=== PATIENT | male | born 1940 | race Caucasian/White ===

== ENCOUNTER 2018-02-07 10:57 | Emergency (ER) | payer MEDICARE, OTHER ==
[2018-02-07 11:48] LABS: #Basophils 0.1 thou/uL (0.0-0.2); #Eosinphils 0.2 thou/uL (0.0-0.7); #Lymphocytes 1.5 thou/uL (1.20-3.40); #Monocytes 0.7 thou/uL (0.11-0.59); #Neutrophils 8.8 thou/uL (1.40-6.50); %Basophils 0.8 % (0.0-1.0); %Eosinophils 1.9 % (0.0-10.0); %Lymphocytes 13.1 % (21.0-51.0); %Monocytes 6.3 % (0.0-10.0); %Neutrophils 77.8 % (42.0-75.0); Mean Corpuscular HGB CONC 32.3 g/dL (32.0-36.0); Mean Corpuscular Volume 86.8 fl (80.0-94.0); Platelet Count 288 thou/uL (130-400); Red Blood Cell (RBC) Count 3.21 mill/uL (4.70-6.10); White Blood Cell (WBC) Count 11.3 thou/uL (4.8-10.8)
[2018-02-07 12:09] LABS: ALT (SGPT) 77 U/L (8-55); AST (SGOT) 182 U/L (5-34); Albumin 3.4 g/dL (3.4-4.8); Alkaline Phosphatase 397 U/L (40-150); Anion Gap 7 mmol/L (10-20); BUN (Urea Nitrogen) 30 mg/dL (8.4-25.7); Bilirubin, Total 0.2 mg/dL (0.2-1.2); Calc. Creatinine Clearance 0 mL/min (70-130); Calcium 8.6 mg/dL (7.8-10.44); Carbon Dioxide 28 mmol/L (23-31); Chloride 109 mmol/L (98-107); Estimated GFR-MDRD 35; Globulin 2.5 g/dL (2.4-3.5); Glucose 118 mg/dL (83-110); Potassium 4.6 mmol/L (3.5-5.1); Protein, Total 5.9 g/dL (5.8-8.1); Sodium 139 mmol/L (136-145)
[2018-02-07 12:11] LABS: CKMB 1.1 ng/mL (0-6.6); Troponin I Less than 0.010 ng/mL (< 0.028)
--- NOTE | 2018-02-07 12:40 | RAD ---
AP CHEST: Indication: Dyspnea with hypoglycemia. IMPRESSION: No acute abnormality. COMMENTS: No focal consolidation is evident. Vascular calcification involving the aortic arch. No comparisons a re available. There are degenerative changes of both glenohumeral joints. POS: [facility]
== END 2018-02-07 14:50 | disposition home or self-care (01) ==
LOC: ERS 10:57
DX: E11.649 Type 2 diabetes mellitus with hypoglycemia without coma (principal); I51.9 Heart disease, unspecified
CPT/HCPCS: 36415; 36416; 71045; 80053; 82553; 84484; 85025; 93005

== ENCOUNTER 2018-05-30 08:50 | Day surgery (SDC) | payer MEDICARE, OTHER ==
[2018-05-30] MEDS ORDERED: Sodium Chloride 0.9% 20 ML ONE (09:03)
[2018-05-30] MEDS ORDERED: diphenhydrAMINE 25 MG CAP PO SCH (09:15)
[2018-05-30] MEDS ORDERED: Acetaminophen 500 MG TAB PO SCH (09:15)
[2018-05-30] MEDS ORDERED: Sodium Chloride 0.9% 30 ML ONE (10:17)
[2018-05-30 13:04] LABS: Hemoglobin 8.3 g/dL (14.0-18.0)
[2018-05-30 15:46] VITALS: BP 132/73; TEMP 97.9
== END 2018-05-30 16:02 | disposition home or self-care (01) ==
LOC: ONC/OP 08:50
PROVIDERS: ATTEND Internal Medicine Medical Oncology
DX: D64.9 Anemia, unspecified (principal)
CPT/HCPCS: 36430; 85014; 85018; 86850; 86900; 86901; A4216; P9016

== ENCOUNTER 2018-06-16 10:06 | Outpatient (CLI) | payer MEDICARE, OTHER ==
--- NOTE | 2018-06-16 13:34 | CT ---
CT CHEST WITHOUT CONTRAST CT ABDOMEN WITHOUT CONTRAST CT PELVIS WITHOUT CONTRAST: Date: 06/16/18 HISTORY: Colon cancer FINDINGS: There is consolidation in the right lower lobe with small right effusion. Massive atelectasis left lo wer lobe. No definite suspicious pulmonary nodule. No significant pericardial effusion. Moderate to severe calcifications of the [place] coronary arterie s. Severe degenerative changes of both glenohumeral joints. Posterior spinal fusion hardware L4-5 with l aminectomy changes. Thyroid is unremarkable. No mediastinal adenopathy. Unchanged appearance of right cardiophrenic lymph node with small fatty hilum unlikely to be involve d. There is extensive hepatic metastatic disease with near complete replacement of the left lobe of t he liver with metastasis. This prior measured approximately 12 cm in left lobe, now approximately 15 cm. There is extension outside the hepatic capsule to the anterior pararenal space. The metastasis do es surround the second portion of the duodenum with some luminal narrowing. Tumor does also surround the pylorus. The patient is at risk for developing obstruction. The index lesion of the peritoneal implant which is herniated within the umbilical hernia measures 2. 2 x 1.3 cm, previously 1.2 x 0.8 cm. Worsening free fluid in the pelvis. An index perihepatic periton eal implant on today's examination measures 2.5 x 2.5 cm, previously 0.7 x 1.4 cm. Cholelithiasis is present. Perisplenic ascites is present. Aortoiliac contour is nonaneurysmal. Prostate is markedly enlarged. There is a large calculus within the urinary bladder which is slightly increased in size from the [facility] examination, likely from chronic stagnant flow due to chronic bladder outlet obstruction. No hydronephrosis. No osteolytic or osteoblastic lesions to suggest osseous metastatic disease. IMPRESSION: 1. Marked progression of intraperitoneal metastatic disease and hepatic metastatic disease. Tumor sharp rrounds the second portion of the duodenum and gastric antrum, placing this patient at risk for gastr ic outlet obstruction and bowel obstruction in the future. 2. Index lesions as described above, which have increased in size from comparison. POS: [facility]
== END 2018-06-16 10:07 | disposition home or self-care (01) ==
LOC: SCSCT 10:06
PROVIDERS: ATTEND Internal Medicine Medical Oncology
DX: C22.0 Liver cell carcinoma (principal); C78.6 Secondary malignant neoplasm of retroperitoneum and peritoneum; C78.4 Secondary malignant neoplasm of small intestine; C78.89 Secondary malignant neoplasm of other digestive organs; N18.3 Chronic kidney disease, stage 3 (moderate); D63.1 Anemia in chronic kidney disease; R91.8 Other nonspecific abnormal finding of lung field; K42.9 Umbilical hernia without obstruction or gangrene
CPT/HCPCS: 71250; 74177

== ENCOUNTER 2018-06-28 09:51 | Day surgery (SDC) | payer MEDICARE, OTHER ==
[2018-06-28] MEDS ORDERED: diphenhydrAMINE 25 MG CAP PO SCH (10:15)
[2018-06-28] MEDS ORDERED: Acetaminophen 500 MG TAB PO SCH (10:15)
[2018-06-28 10:56] VITALS: BMI 30.7
[2018-06-28 14:47] LABS: Hemoglobin 8.7 g/dL (14.0-18.0)
[2018-06-28 18:26] VITALS: BP 170/96; TEMP 97.6
== END 2018-06-28 18:51 | disposition home or self-care (01) ==
LOC: ONC/OP 09:51 → ONC 10:03 → ONC/OP 18:51
PROVIDERS: ATTEND Internal Medicine Medical Oncology
PROC: 30233N1 Transfusion of Nonautologous Red Blood Cells into Peripheral Vein, Percutaneous Approach (ICD-10-PCS; principal; 2018-06-28)
DX: D64.9 Anemia, unspecified (principal); D69.6 Thrombocytopenia, unspecified; Z79.02 Long term (current) use of antithrombotics/antiplatelets; Z79.4 Long term (current) use of insulin; Z79.82 Long term (current) use of aspirin; Z79.899 Other long term (current) drug therapy; Z91.013 Allergy to seafood; Z91.018 Allergy to other foods; Z91.041 Radiographic dye allergy status
CPT/HCPCS: 36415; 36430; 85014; 85018; 86850; 86900; 86901; P9016

== ENCOUNTER 2018-07-29 21:51 | Inpatient (IN) | payer MEDICARE, OTHER ==
[~2018-07-29 21:51] MED LIST: ISOVUE-370 76%-LOCM 1 ML ONE
[2018-07-29 22:49] LABS: #Basophils 0.1 thou/uL (0.0-0.2); #Eosinphils 0.4 thou/uL (0.0-0.7); #Lymphocytes 1.9 thou/uL (1.20-3.40); #Monocytes 0.9 thou/uL (0.11-0.59); #Neutrophils 9.6 thou/uL (1.40-6.50); %Basophils 0.5 % (0.0-1.0); %Eosinophils 2.9 % (0.0-10.0); %Lymphocytes 14.6 % (21.0-51.0); %Monocytes 7.4 % (0.0-10.0); %Neutrophils 74.6 % (42.0-75.0); Hemoglobin 9.9 g/dL (14.0-18.0); Mean Corpuscular HGB CONC 31.2 g/dL (32.0-36.0); Mean Corpuscular Hemoglobin 27.6 pg (27.0-31.0); Mean Corpuscular Volume 88.3 fL (78.0-98.0); Mean Platelet Volume 10.4 fL (7.4-10.4); Platelet Count 322 thou/uL (130-400); RBC Distribution Width 21.2 % (11.5-14.5); Red Blood Cell (RBC) Count 3.59 mill/uL (4.70-6.10); White Blood Cell (WBC) Count 12.8 thou/uL (4.8-10.8)
[2018-07-29 22:55] LABS: INR-International Normal Ratio 1.1; PTT 31.2 SEC (22.9-36.1); Prothrombin Time 14.1 SEC (12.0-14.7)
--- NOTE | 2018-07-29 22:59 | CT ---
CT BRAIN NONCONTRAST: 07/29/18 at 10:47 p.m. HISTORY: 77-year-old male status post acute head trauma from fall. FINDINGS: There is no midline shift or any other mass effect. There is no evidence of acute intracranial hemor rhage, large cortical infarct, obstructive hydrocephalus, or extraaxial fluid collection. The calvar ium is intact. There is a right parietal scalp contusion. IMPRESSION: 1. No acute intracranial findings. 2. Acute, traumatic, right posterior scalp contusion. jn [] POS: [facility]
--- NOTE | 2018-07-29 23:08 | CT ---
CT CERVICAL SPINE NONCONTRAST: 07/29/18 HISTORY: 77-year-old male status post acute cervical trauma from fall. FINDINGS: There are no jumped or perched facets. There is no evidence of acute fracture. The vertebral body h eights are maintained. There is no prevertebral soft tissue swelling. There is a posteriorly layerin g right pleural effusion that encroaches upon the right apex. IMPRESSION: 1. No evidence of acute fracture or acute traumatic subluxation. 2. Right pleural effusion. jessica griffiths POS: [facility]
[2018-07-29 23:09] LABS: ALT (SGPT) 78 U/L (8-55); AST (SGOT) 216 U/L (5-34); Albumin 3.6 g/dL (3.4-4.8); Alkaline Phosphatase 456 U/L (40-150); Anion Gap 14 mmol/L (10-20); BUN (Urea Nitrogen) 38 mg/dL (8.4-25.7); Bilirubin, Total 0.3 mg/dL (0.2-1.2); CK (CPK) 62 U/L (30-200); Calc. Creatinine Clearance 0 mL/min (70-130); Calcium 9.3 mg/dL (7.8-10.44); Carbon Dioxide 23 mmol/L (23-31); Chloride 108 mmol/L (98-107); Estimated GFR-MDRD 23; Globulin 3.7 g/dL (2.4-3.5); Glucose 146 mg/dL (83-110); Magnesium 1.6 mg/dL (1.6-2.6); Protein, Total 7.3 g/dL (5.8-8.1); Sodium 140 mmol/L (136-145)
[2018-07-29] MEDS ORDERED: Ondansetron HCl/PF 4 MG/2 ML Vial ONE (23:11)
[2018-07-29] MEDS ORDERED: Fentanyl 100 MCG/2 ML VIAL ONE (23:11)
[2018-07-29 23:12] LABS: CKMB 1.3 ng/mL (0-6.6); Troponin I Less than 0.010 ng/mL (< 0.028)
--- NOTE | 2018-07-29 23:19 | CT ---
CT MAXILLOFACIAL NONCONTRAST: 07/29/18 at 10:49 p.m. HISTORY: 77-year-old male status post acute facial trauma from fall. FINDINGS: There is no fracture. Orbits are clear. All of the paranasal sinuses, and the bilateral tympanomastoi d cavities, are clear. There is ossification of the right stylohyoid ligament, reaching very close to the hyoid bone. At a distance of approximately 2.5 to 3 cm inferior to the origin of the right stylo id process, there are hypertrophic osseous degenerative changes at the junction between it and the os sified right stylohyoid ligament. IMPRESSION: 1. No acute fracture. 2. Ossification of the right stylohyoid ligament. In some patients this could cause [place]'s synd odalis. Clinical correlation is recommended. POS: [facility]
--- NOTE | 2018-07-29 23:37 | CT ---
CT THORAX NONCONTRAST CT ABDOMEN NONCONTRAST CT PELVIS NONCONTRAST CT THORACIC AND LUMBAR SPINE NONCONTRAST 07/29/18 at 11:04 p.m. HISTORY: 77-year-old male status post acute traumatic injury to the chest, abdomen and pelvis from fall. COMPARISON: CTs of thorax, abdomen, and pelvis of 06/16/18. FINDINGS: THORACIC AND LUMBAR SPINE: No evidence of acute compression fracture. Multilevel high grade degenerative disc disease throughout the lumbar spine. Bilateral pedicle screws at L4 and L5. THORAX: Previously, there was a very small right pleural effusion. This has increased in volume, and is still small, but currently occupies approximately 20% volume of the right hemithoracic cavity. Small area of air space density abutting the pleural effusion, probably represents passive atelectasis. The rest of the visualized lung lance are clear of consolidation and edema. No grossly displaced rib or ster nal fracture. No mediastinal hematoma or pericardial effusion. No thoracic aortic aneurysm. No pneumo thorax. ABDOMEN: Again demonstrated is the large tumor mass replacing most of the volume of the left lobe of the liver , and encroaching upon right lobe of the liver. Multiple intraperitoneal metastatic masses throughout the mesentery and omentum. Multiple calcified gallstones again noted. No hydronephrosis. Small amoun t of free fluid around the liver and smaller amount of free fluid adjacent to the spleen. Free fluid adjacent to the spleen has decreased in volume since the previous CT. No small bowel dilation. PELVIS: Moderate amount of free fluid within the lower portion of the abdominal cavity extending into the pel tiana inlet has increased in volume since the previous CT somewhat. Very enlarged prostate gland. This displaces the base of the urinary bladder superiorly. Again noted is the 1 x 1 x 0.9 calculus within the lumen of the urinary bladder. No acute fracture of the pelvis. No dislocation. IMPRESSION: 1. Extensive intraperitoneal spread of metastatic disease. 2. Large neoplastic malignant hepatic mass. 3. Interval increase in volume of small right pleural effusion. 4. Cholelithiasis. 5. Calculus in the bladder. 6. Very enlarged prostate gland. 7. Small volume of malignant ascites has slightly increased in volume. 8. The presence of all of the above malignant findings, plus lack of IV contrast, decreases the sensitivity for the detection of acute traumatic injury within the abdominal cavity and pelvic cavity . No definitive evidence of acute traumatic injury is identified. POS: [facility]
--- NOTE | 2018-07-29 23:44 | RAD ---
RADIOGRAPH CHEST 1 VIEW: Supine 07/29/18 HISTORY: 77-year-old male status post acute chest trauma from fall. FINDINGS: There is no air space density or pulmonary edema. The lateral costophrenic angles are sharp. Supine positioning makes this study insensitive for pneumothorax detection. IMPRESSION: No acute pulmonary findings. jessica [] POS: [facility]
--- NOTE | 2018-07-29 23:47 | RAD ---
RADIOGRAPH LEFT SHOULDER 3 VIEWS: 07/29/18 at 11:22 p.m. HISTORY: 77-year-old male with traumatic left shoulder pain from fall. FINDINGS: Moderate degenerative bony hypertrophy at the inferior aspect of the glenohumeral joint. Moderate DJD at AC joint. Focal 6 x 5 mm calcific density in the soft tissues very close to the superior aspect o f the humeral anatomical neck. No acute fracture or dislocation. IMPRESSION: 1. No acute fracture. 2. Moderate osteoarthrosis of the glenohumeral joint and acromioclavicular joint. 3. 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 POS: [facility]
[2018-07-30] MEDS ORDERED: Promethazine HCl 25 MG/ML VIAL ONE (00:36)
--- NOTE | 2018-07-30 00:43 | PDOC.FPRHP ---
- History of Present Illness Chief Complaint: Fall History of Present Illness: Mr. Valdez presents to the ED with a 2 week history of increasing instability/ falls, he reports that it can happen at any time and usually involves tripping over something, or becoming unsteady. He usually falls all the way to the ground , but denies LOC. He denies chest pain, shortness of breath, palpitations, headaches, vision changes, N/V/D, or focal weakness. He has been treated for liver cancer for over a year and reports he has had a recent change in his medication regimen. He has a history of heart disease and sees Dr. Lamas regularly, had an echocardiogram 3-4 months ago. Everything is stable and without new concerns as far as they know. ED Course: CT: entire body, BNP, Trop/ckmb, CK, CMP/CBC, PT/PTT/INR. cleared from trauma standpoint - Allergies/Adverse Reactions Allergies Allergy/AdvReac Type Severity Reaction Status Date / Time iodine Allergy Verified 04/27/17 14:01 kiwi Allergy Swollen Verified 04/27/17 14:01 Lips shellfish derived Allergy Verified 04/27/17 14:01 SHRIMP Allergy Uncoded 04/27/17 14:01 - Home Medications Medication Instructions Recorded Confirmed Type Cholecalciferol (Vitamin D3) 2,000 unit PO DAILY 08/04/13 07/30/18 History [Vitamin D3] Insulin Glargine,Hum.Rec.Anlog 10 unit SC 08/04/13 07/30/18 History [Lantus Solostar] Verapamil HCl [Verapamil HCl ER] 360 mg PO DAILY 08/04/13 07/30/18 History Amitriptyline HCl 25 mg PO HS 04/26/17 07/30/18 History Finasteride 5 mg PO DAILY 04/26/17 07/30/18 History Fish Oil/Borage/Flax/Om3,6,9 1 1 cap PO BID 04/26/17 07/30/18 History [[place] 3-6-9 Complex Softgel] Carvedilol 6.25 mg PO BID 07/30/18 07/30/18 History Cyclobenzaprine [Flexeril] 10 mg PO TID PRN 07/30/18 07/30/18 History Levothyroxine Sodium 150 mg PO DAILY 07/30/18 07/30/18 History Loratadine [Claritin] 10 mg PO DAILY 07/30/18 07/30/18 History Mirtazapine 15 mg PO HS 07/30/18 07/30/18 History Ondansetron [Zofran ODT] 8 mg PO DAILY PRN 07/30/18 07/30/18 History traMADol HCl [Tramadol HCl] 50 mg PO DAILY 07/30/18 07/30/18 History - History PMHx: CHF, DMII, HTN, Liver CA PSHx: stent placement, knee replacement and back surgeries FHx:n/a Social:no TAD - Review of Systems General: reports: fatigue. denies: fever/chills, weight/appetite/sleep changes Eyes: denies: vision changes ENT: denies: nasal congestion, rhinorrhea Respiratory: denies: cough, congestion, shortness of breath Cardiovascular: reports: edema. denies: chest pain, palpitation Gastrointestinal: denies: nausea, vomiting, diarrhea Genitourinary: denies: incontinence, dysuria Skin: reports: jaundice. denies: rashes, lesions Musculoskeletal: reports: pain. denies: tenderness, stiffness Neurological: denies: numbness, syncope Psychological: denies: anxiety, depression - Vital signs BP: [160/87] HR: [62] RR: [16] Tmax: [98.2] Pox: [96]% on [RA] Wt: [80kg] - Physical Exam Constitutional: NAD, well developed HEENT: conjunctiva clear, grossly normal vision, grossly normal hearing Neck: supple, trachea midline Chest: no-tender to palpation, no lesions Heart: RRR Lungs: CTAB, no respiratory distress, good air movement, no wheezing Abdomen: soft, non-tender, no masses/distention Musculoskeletal: normal structure, ROM grossly normal Neurological: no focal deficit, CN II-XII intact, normal sensation Skin: no rash/lesions, good turgor Heme/Lymphatic: no unusual bruising or bleeding, no petechia Psychiatric: normal mood and affect FMR H&P: Results - Labs Result Diagrams: 07/29/18 22:37 07/29/18 22:37 Lab results: WBC 12.8 thou/uL (4.8-10.8) H 07/29/18 22:37 Hgb 9.9 g/dL (14.0-18.0) L 07/29/18 22:37 Hct 31.7 % (42.0-52.0) L 07/29/18 22:37 MCV 88.3 fL (78.0-98.0) 07/29/18 22:37 Plt Count 322 thou/uL (130-400) 07/29/18 22:37 Neutrophils % 74.6 % (42.0-75.0) 07/29/18 22:37 Sodium 140 mmol/L (136-145) 07/29/18 22:37 Potassium 5.0 mmol/L (3.5-5.1) 07/29/18 22:37 Chloride 108 mmol/L (98-107) H 07/29/18 22:37 Carbon Dioxide 23 mmol/L (23-31) 07/29/18 22:37 BUN 38 mg/dL (8.4-25.7) H 07/29/18 22:37 Creatinine 2.71 mg/dL (0.6-1.3) H 07/29/18 22:37 Glucose 146 mg/dL (83-110) H 07/29/18 22:37 Calcium 9.3 mg/dL (7.8-10.44) 07/29/18 22:37 Total Bilirubin 0.3 mg/dL (0.2-1.2) 07/29/18 22:37 AST 216 U/L (5-34) H 07/29/18 22:37 ALT 78 U/L (8-55) H 07/29/18 22:37 Alkaline Phosphatase 456 U/L (40-150) H 07/29/18 22:37 Creatine Kinase 62 U/L (30-200) 07/29/18 22:37 CK-MB (CK-2) 1.3 ng/mL (0-6.6) 07/29/18 22:37 B-Natriuretic Peptide 1093.5 pg/mL (0-100) H 07/29/18 22:37 Serum Total Protein 7.3 g/dL (5.8-8.1) 07/29/18 22:37 Albumin 3.6 g/dL (3.4-4.8) 07/29/18 22:37 Lipase 47 U/L (8-78) 07/29/18 22:37 FMR H&P: A/P - Problem List (1) Fall Current Visit: Yes Status: Acute Code(s): W19.XXXA - UNSPECIFIED FALL, INITIAL ENCOUNTER (2) Liver neoplasm Current Visit: Yes Status: Acute (3) CAD (coronary artery disease) Current Visit: No Status: Chronic Code(s): I25.10 - ATHSCL HEART DISEASE OF [place] CORONARY ARTERY W/O ANG PCTRS (4) Diabetes mellitus Current Visit: No Status: Chronic Code(s): E11.9 - TYPE 2 DIABETES MELLITUS WITHOUT COMPLICATIONS (5) HTN (hypertension) Current Visit: No Status: Chronic Code(s): I10 - ESSENTIAL (PRIMARY) HYPERTENSION (6) HLD (hyperlipidemia) Current Visit: No Status: Chronic Code(s): E78.5 - HYPERLIPIDEMIA, UNSPECIFIED - Plan 1. Fall - TTE in the last 3-4 months showing unchanged HFpEF (60% EF) - Negative CT brain - CMP at baseline - Negative Orthostatic vital signs 2. Liver neoplasm - being managed by oncology, on chemotherapy currently - ammonia level to evaluate for hepatic encephalopathy 3. CAD - cardiac catheterization in the past - trop/ckmb negative 4. DMII - controlled, continue home meds - mild sliding scale 5. HTN - blood pressure at goal - pulse possible too low, hold carvedilol Disposition/LOS: observation on telemetry, monitor vital signs, evaluate for other possible causes. FMR H&P: Upper Level - Pertinent history 77M seen today for fall. Patient gathered from patient who was sleepy and did not desire conversation. He states he was walking when he fell backward, hitting his head on counter and floor. He says that he's not sure if he was dizzy or tripped. He denies losing consciousness but did have vomiting, nausea afterward. He denies having diaphoresis, palpitation, chest pain, SOB, stomach pain at time this happened. His history pertinent for undergoing once every 2 week chemotherapy and DM2 and he had recent change in his chemo regimen. - Pertinent findings CTA abd, pelvis, cjest: metastatic disease, hepatic mass, right lungsion, ascites CT brain: Acute traumatic right posterior scalp contusion WBC 2. Hgb 9.9 Cr 2.7 BNP: 1093 AST 216 ALT 78 Creatinine phosphate 40 Gen: Sleeping, but arousable and answers appropriately HEENT: Contusion to eye and back of scalp. Resp: CTA bilaterall CV: RRR with no apparent m/g/r Ext: Trace edema to mid fay - Plan Date/Time: 07/30/18 0041 I, [Wallace Dunn], have evaluated this patient and agree with findings/plan as outlined by biology internship resident. Pertinent changes/additions are listed here. 1. Rule out SBP - ER obtained peritoneal fluid out of concern of SBP - Bloody tap, but even after removing WBC at a 1 to 250 RBC ratio, still has more then 250 WBC, can not rule out SBP - Plan, start on ceftriaxone 2 gm qd, until culture result returns. 2. Fall - Admit to tele, desk monitor to rule out arrhythmia - No hypotension while here, no symptom of hypoglycemia and was not hypoglycemic here. CT scan show no brain changes. - Will monitor, but may have been mechanical fall related. - Normal CMP today, recheck tomorrow 3. Liver cancer - Obtain ammonia level. Fall may be related to recent chemo change 4. CAD - Trop negative 5. DM2 - Continue home medication, mild SSI 6. HTN - Hold carvedilol at this time due to low pulse. 7. Hypothyrodism - Continue home medication. Attending Addendum - Attending Addendum Date/Time: 07/30/18 0659 I personally evaluated the patient and discussed the management with Dr. Singh. I agree with the History, Examination, Assessment and Plan documented above with any addition or exceptions noted below. The patietn presents to the ER after a fall resulting in a scalp lac and facial bruising. He has had multiple falls over the past few weeks. He was recently swapped to [facility] for his cancer treatment. He had a paracentesis in the ER which shows increased wbc's. Starting antibiotics for possible sbp. Pt not having any abdominal pain. Will consult PT. Await cultures.
[2018-07-30] MEDS ORDERED: Lidocaine 1% w/Epinephrine 1:100K 20 ML VIAL ONE (01:28)
[2018-07-30 03:12] LABS: BF Color Red; Body Fluid Source PERITONEAL FLUID; Clarity Cloudy/Turbid (Clear); Tube # EDTA
[2018-07-30 03:13] LABS: RBC Count-Automated 40000 /cumm; WBC/NonHematic-Auto 525 /cumm
[2018-07-30 03:37] LABS: BF Segmented Neutrophils 22 %; Cell Count Non Hematic 23 %; Lymphocytes 55 %
[2018-07-30] MEDS ORDERED: cefTRIAXone\\ROCEPHIN 1 GM VIAL ONE (03:40)
[2018-07-30 04:03] LABS: Bilirubin Negative (Negative); Blood, Urine Trace (Negative); Clarity CLEAR (Clear); Glucose, Urine (Dipstick) 100 mg/dL (Negative); Leukocyte Negative (Negative); Nitrite Negative (Negative); Protein, Urine (Dipstick) 300 mg/dL (Neg-Trace); Specific Gravity, Urine 1.015 (1.002-1.036); Urobilinogen 0.2 mg/dL (0.2-1.0); pH, Urine 6.5 (5.0-9.0)
[2018-07-30 04:05] LABS: Bacteria/HPF None Seen HPF (None Seen); Hyaline Casts/LPF 0-3 HYALINE CAST LPF (0-3 Hyaline); Pathc Cast-AUWi Flag 0.43 (0-2.49); Squamous Epithelial 0-3 HPF (0-3); WBC/HPF 0-3 HPF (0-3)
[2018-07-30 05:10] VITALS: BMI 29.7
[2018-07-30] MEDS ORDERED: Ondansetron ODT 4 MG TAB SL PRN (05:15)
[2018-07-30] MEDS ORDERED: Sodium Chloride 0.9% 1,000 ML IV SCH (05:15)
[2018-07-30] MEDS ORDERED: Ondansetron HCl/PF 4 MG/2 ML Vial IVP PRN (05:15)
[2018-07-30] MEDS: cefTRIAXone\\ROCEPHIN 2 GM in Sodium Chloride 0.9% 100 ML IVPB SCH (06:10)
[2018-07-30] MEDS ORDERED: Dextrose 50% Abboject 50 ML SYRINGE SLOW IVP PRN (06:25)
[2018-07-30] MEDS ORDERED: HumaLOG 300 UNITS/3 ML VIAL SC PRN ×2 (06:25)
[2018-07-30] MEDS ORDERED: Dextrose 5% in Water 1,000 ML IV PRN (06:25)
[2018-07-30] MEDS ORDERED: Cyclobenzaprine 10 MG TAB PO PRN (07:06)
[2018-07-30] MEDS ORDERED: FLAX PO SCH (09:00)
[2018-07-30] MEDS ORDERED: Non-Formulary Item 1 EACH (Cholecalciferol (Vitamin D3) [Vitamin D3] 2,000 UNIT) PO SCH (09:00)
[2018-07-30] MEDS ORDERED: [UNRECOGNIZED DRUG - OTHER] PO SCH (09:00)
[2018-07-30] MEDS ORDERED: VERAPAMIL HCL 360 MG PO SCH (09:00)
[2018-07-30] MEDS ORDERED: Levothyroxine 150 MCG TAB PO SCH (09:00)
[2018-07-30] MEDS ORDERED: FISH OIL PO SCH (09:00)
[2018-07-30] MEDS ORDERED: BORAGE PO SCH (09:00)
[2018-07-30] MEDS ORDERED: Non-Formulary Item 1 EACH (Loratadine [Claritin] 10 MG) PO SCH (09:00)
[2018-07-30] MEDS: Loratadine 10 MG TAB PO SCH (09:59)
[2018-07-30] MEDS: Finasteride 5 MG TAB PO SCH (09:59)
[2018-07-30] MEDS: Fish Oil 1,000 MG CAP PO SCH ×2 (09:59→22:07)
[2018-07-30] MEDS: Levothyroxine 150 MCG TAB PO SCH (09:59)
[2018-07-30] MEDS: Enoxaparin Sodium 30 MG/0.3 ML SYRINGE SC SCH (09:59)
[2018-07-30] MEDS: traMADol HCl 50 MG TAB PO SCH (10:00)
--- NOTE | 2018-07-30 10:01 | ULT ---
RIGHT UPPER QUADRANT ULTRASOUND: Date: 07/30/18 HISTORY: Abdominal pain. FINDINGS: Multiple longitudinal and transverse images of the right upper quadrant of the abdomen is obtained us ing a multihertz curvilinear transducer. Real-time and color flow images demonstrate a large solid ma ss in the left hepatic lobe measuring 6.7 x 5.7 cm. Further workup using pre and postcontrast enhance d dynamic CT images liver recommended. No evidence of intrahepatic biliary dilatation is seen. Numerous shadowing echogenic gallstones seen. The gallbladder is of normal thickness, measuring 5 mm. Pericholecystic fluid is seen. Visualized portions of the pancreas are unremarkable. The right kidney is unremarkable. IMPRESSION: 1. Large left hepatic lobe parenchymal liver mass. 2. Gallbladder wall thickening with pericholecystic fluid, compatible with cholecystitis. Cholelithi asis is also present. POS: [facility]
[2018-07-30] MEDS ORDERED: Acetaminophen 500 MG TAB PO PRN (13:23)
[2018-07-30] MEDS ORDERED: Non-Formulary Item 1 EACH (Insulin Glargine,Hum.Rec.Anlog [Lantus Solostar] 10 UNIT) SC SCH (21:00)
[2018-07-30] MEDS: Amitriptyline HCl 25 MG TAB PO SCH (22:10)
[2018-07-30] MEDS: Carvedilol 6.25 MG TAB PO SCH (22:10)
[2018-07-30] MEDS: Insulin Glargine 10 UNITS in Pre-Filled Syringe 1 EACH SC SCH (22:11)
[2018-07-30] MEDS: Mirtazapine 15 MG TAB PO SCH (22:11)
[2018-07-31] MEDS: cefTRIAXone\\ROCEPHIN 2 GM in Sodium Chloride 0.9% 100 ML IVPB SCH (04:28)
[2018-07-31 04:30] LABS: #Basophils 0.1 thou/uL (0.0-0.2); #Eosinphils 0.3 thou/uL (0.0-0.7); #Lymphocytes 1.7 thou/uL (1.20-3.40); #Monocytes 0.9 thou/uL (0.11-0.59); #Neutrophils 7.1 thou/uL (1.40-6.50); %Basophils 0.6 % (0.0-1.0); %Eosinophils 2.5 % (0.0-10.0); %Lymphocytes 17.1 % (21.0-51.0); %Monocytes 9.1 % (0.0-10.0); %Neutrophils 70.7 % (42.0-75.0); Hemoglobin 9.2 g/dL (14.0-18.0); Mean Corpuscular HGB CONC 30.3 g/dL (32.0-36.0); Mean Corpuscular Hemoglobin 27.2 pg (27.0-31.0); Mean Corpuscular Volume 89.7 fL (78.0-98.0); Mean Platelet Volume 10.1 fL (7.4-10.4); Platelet Count 287 thou/uL (130-400); RBC Distribution Width 20.9 % (11.5-14.5); Red Blood Cell (RBC) Count 3.39 mill/uL (4.70-6.10); White Blood Cell (WBC) Count 10.1 thou/uL (4.8-10.8)
[2018-07-31 04:41] LABS: ALT (SGPT) 84 U/L (8-55); AST (SGOT) 246 U/L (5-34); Albumin 3.3 g/dL (3.4-4.8); Alkaline Phosphatase 425 U/L (40-150); Anion Gap 12 mmol/L (10-20); BUN (Urea Nitrogen) 33 mg/dL (8.4-25.7); Bilirubin, Total 0.3 mg/dL (0.2-1.2); Calc. Creatinine Clearance 30 mL/min (70-130); Carbon Dioxide 24 mmol/L (23-31); Chloride 108 mmol/L (98-107); Estimated GFR-MDRD 28; Globulin 3.3 g/dL (2.4-3.5); Glucose 104 mg/dL (83-110); Potassium 4.8 mmol/L (3.5-5.1); Protein, Total 6.6 g/dL (5.8-8.1); Sodium 139 mmol/L (136-145)
--- NOTE | 2018-07-31 05:50 | PDOC.FM ---
- Subjective Subjective: No overnight events. Denies abdominal pain, chest pain, shortness of breath. Denies BM since admission, not interested in BM regimen at this time. No other concerns - Objective MAR Reviewed: Yes Vital Signs & Weight: Vital Signs (12 hours) Temp Pulse Resp BP BP BP BP 07/31/18 04:40 99.0 F 112 H 16 130/70 07/31/18 04:00 97.6 F 53 L 16 146/76 H 07/30/18 22:10 152/78 H 07/30/18 20:00 98.1 F 74 18 152/78 H Pulse Ox 07/31/18 04:40 07/31/18 04:00 07/30/18 22:10 07/30/18 20:00 97 Weight Weight 81.193 kg I&O: 07/29/18 07/30/18 07/31/18 06:59 06:59 06:59 Intake Total 1095 Balance 1095 Result Diagrams: 07/31/18 04:18 07/31/18 04:18 Phys Exam - Physical Examination Constitutional: NAD blood on pillow- wound on back of head Neck: supple Respiratory: no wheezing, clear to auscultation bilateral Systolic murmur Gastrointestinal: soft, non-tender, positive bowel sounds Musculoskeletal: pulses present, edema present Psychiatric: normal affect, A&O x 3 Dx/Plan (1) Fall Code(s): W19.XXXA - UNSPECIFIED FALL, INITIAL ENCOUNTER Status: Acute (2) Liver neoplasm Status: Acute (3) Bradycardia Code(s): R00.1 - BRADYCARDIA, UNSPECIFIED Status: Acute (4) Liver mass Code(s): R16.0 - HEPATOMEGALY, NOT ELSEWHERE CLASSIFIED Status: Acute (5) Anemia Code(s): D64.9 - ANEMIA, UNSPECIFIED Status: Chronic (6) BPH (benign prostatic hyperplasia) Code(s): N40.0 - BENIGN PROSTATIC HYPERPLASIA WITHOUT LOWER URINRY TRACT SYMP Status: Chronic (7) CAD (coronary artery disease) Code(s): I25.10 - ATHSCL HEART DISEASE OF [place] CORONARY ARTERY W/O ANG PCTRS Status: Chronic (8) Diabetes mellitus Code(s): E11.9 - TYPE 2 DIABETES MELLITUS WITHOUT COMPLICATIONS Status: Chronic (9) HLD (hyperlipidemia) Code(s): E78.5 - HYPERLIPIDEMIA, UNSPECIFIED Status: Chronic (10) HTN (hypertension) Code(s): I10 - ESSENTIAL (PRIMARY) HYPERTENSION Status: Chronic (11) Hypothyroid Code(s): E03.9 - HYPOTHYROIDISM, UNSPECIFIED Status: Chronic - Plan Plan: SBP - Asymptomatic - Fluid cloudy, RBCs 40,000 WBC 365 when corrected for rbcs, cx pending - Initially leukocytosis - Continue Ceftriaxone Fall - TTE in the last 3-4 months showing unchanged HFpEF (60% EF) - Negative CT brain - CMP at baseline, no hypoglycemia. Continue to monitor - Negative Orthostatic vital signs - Possible mechanical, PT/OT consulted Liver neoplasm - Being managed by oncology, on chemotherapy currently - Pt with recent change in therapy - Ammonia level nml CAD - Cardiac cath in the past - Will obtain records from Dr Lamas, Is Project Manager - Trop/ckmb negative - No acute ST changes on EKG DMII, controlled - Continue home Lantus - Mild SSI - ACHS accuchecks - Hypoglycemic protocol HTN - blood pressure at goal - Hold Carvedilol for bradycardia Hypothyroidism - Continue home synthroid Leukocytosis, resolved - possibly 2/2 SBP Code Status: FULL DVT ppx: lovenox
[2018-07-31] MEDS: Carvedilol 6.25 MG TAB PO SCH ×2 (09:21→20:28)
[2018-07-31] MEDS: Fish Oil 1,000 MG CAP PO SCH ×2 (09:22→20:28)
[2018-07-31] MEDS: Loratadine 10 MG TAB PO SCH (09:22)
[2018-07-31] MEDS: Enoxaparin Sodium 30 MG/0.3 ML SYRINGE SC SCH (09:22)
[2018-07-31] MEDS: Finasteride 5 MG TAB PO SCH (09:22)
[2018-07-31] MEDS: Levothyroxine 150 MCG TAB PO SCH (09:22)
[2018-07-31] MEDS: traMADol HCl 50 MG TAB PO SCH (09:25)
--- NOTE | 2018-07-31 12:11 | PRG ---
DATE OF SERVICE: 07/31/2018 SUBJECTIVE: Mr. Valdez was admitted after some falls. He also had a paracentesis due to his ascites secondary to multiple peritoneal metastases from his liver cancer. Actually, he states he feels much better since starting a new anti-chemotherapeutic agent. He is also being followed of course by the Oncology Service. We have a culture pending on the peritoneal fluid. I really doubt that he has SB P, but we will continue antibiotics until cultures return negative. Otherwise, we will follow the le ad of Oncology while consulting palliative care.
--- NOTE | 2018-07-31 15:06 | PQF ---
DATE: 07-31-18 ATTN: DR. RADHA VAZQUEZ / DR. CLAY ALICEA Please exercise your independent, professional judgment in responding to the clarification form. Clinical indicators are provided on the bottom of this form for your review Please check appropriate box(s): HEART FAILURE: A. TYPE: [ ] Systolic / HFrEF [x] Diastolic / HFpEF [ ] Combined Systolic / Diastolic B. ACUITY [ ] Acute [ ] Acute on Chronic [ ] Chronic [ ] Other diagnosis [ ] Unable to determine In addition, please specify: Present on Admission (POA): [ x] Yes [ ] No [ ] Unable to determine For continuity of documentation, please document condition throughout progress notes and discharge summary. Thank You. CLINICAL INDICATORS - SIGNS / SYMPTOMS / LABS ER DX: SYNCOPE, FALL, METASTATIC ASCITES, NEW ONSET CHF H&P: TTE IN THE LAST 3-4 MONTHS SHOWING UNCHANGED HFpEF (60% EF) BNP: 07-29-18: 1093.5 RISKS: ER: HX LIVER CA, CHRONIC BACK PAIN, DM 2, HEART DISEASE H&P: HX CHF, DM 2, HTN, CAD, HLD TREATMENTS: H&P: PULSE POSSIBLE TOO LOW, HOLD CARVEDILOL MAR: 07-30-18: CARVEDILOL This form is maintained as a part of the permanent medical record) 2014 [employer]. All Rights Reserved [email or web address] Office: [phone] [place]
[2018-07-31] MEDS: Mirtazapine 15 MG TAB PO SCH (20:28)
[2018-07-31] MEDS: Amitriptyline HCl 25 MG TAB PO SCH (20:28)
[2018-07-31] MEDS: Insulin Glargine 10 UNITS in Pre-Filled Syringe 1 EACH SC SCH (20:58)
[2018-08-01] MEDS: cefTRIAXone\\ROCEPHIN 2 GM in Sodium Chloride 0.9% 100 ML IVPB SCH (04:36)
--- NOTE | 2018-08-01 06:21 | PDOC.FM ---
- Subjective Subjective: No overnight events. Has some shoulder pain but not currently experiencing pain. Reports Ultram makes him too tired so he tries to avoid taking it he can. Denies SOB, CP. Voiding and stooling. No questions or concerns at this time. - Objective MAR Reviewed: Yes Vital Signs & Weight: Vital Signs (12 hours) Temp Pulse Resp BP BP Pulse Ox 08/01/18 04:12 97.3 F L 67 17 162/81 H 94 L 07/31/18 20:28 157/77 H 07/31/18 20:00 98.1 F 62 18 157/77 H 92 L Weight Admit Weight 81.193 kg Weight 81.193 kg I&O: 07/30/18 07/31/18 08/01/18 06:59 06:59 06:59 Intake Total 1095 960 Balance 1095 960 Result Diagrams: 07/31/18 04:18 07/31/18 04:18 Phys Exam - Physical Examination Constitutional: NAD Neck: supple Respiratory: no wheezing, clear to auscultation bilateral Cardiovascular: RRR Systolic murmur Gastrointestinal: soft, non-tender, positive bowel sounds Musculoskeletal: edema present Psychiatric: normal affect, A&O x 3 Skin: cap refill <2 seconds Dx/Plan (1) Fall Code(s): W19.XXXA - UNSPECIFIED FALL, INITIAL ENCOUNTER Status: Acute (2) Liver neoplasm Status: Acute (3) Bradycardia Code(s): R00.1 - BRADYCARDIA, UNSPECIFIED Status: Acute (4) Liver mass Code(s): R16.0 - HEPATOMEGALY, NOT ELSEWHERE CLASSIFIED Status: Acute (5) Anemia Code(s): D64.9 - ANEMIA, UNSPECIFIED Status: Chronic (6) BPH (benign prostatic hyperplasia) Code(s): N40.0 - BENIGN PROSTATIC HYPERPLASIA WITHOUT LOWER URINRY TRACT SYMP Status: Chronic (7) CAD (coronary artery disease) Code(s): I25.10 - ATHSCL HEART DISEASE OF [place] CORONARY ARTERY W/O ANG PCTRS Status: Chronic (8) Diabetes mellitus Code(s): E11.9 - TYPE 2 DIABETES MELLITUS WITHOUT COMPLICATIONS Status: Chronic (9) HLD (hyperlipidemia) Code(s): E78.5 - HYPERLIPIDEMIA, UNSPECIFIED Status: Chronic (10) HTN (hypertension) Code(s): I10 - ESSENTIAL (PRIMARY) HYPERTENSION Status: Chronic (11) Hypothyroid Code(s): E03.9 - HYPOTHYROIDISM, UNSPECIFIED Status: Chronic - Plan Plan: SBP - Asymptomatic - Fluid cloudy, RBCs 40,000 WBC 365 when corrected for rbcs - Cx NGTD @ 24hrs - Continue Ceftriaxone for total 5 days (started 07/30) Fall - TTE in the last 3-4 months showing unchanged HFpEF (60% EF) - Negative CT brain - CMP at baseline, no hypoglycemia. Continue to monitor - Negative Orthostatic vital signs - Possible mechanical, PT/OT consulted - OT rec pt return home with support from & receive HH PT services to increase independence with ADLs, functional transfers, strength and endurance back to [facility]. Liver neoplasm - Being managed by oncology, on chemotherapy currently - Pt would like flu shot, current chemo regimen recommends oncologist approval - Pt with recent change in therapy - Ammonia level nml - Mertazapine, Suplena for nutrition/wt loss - Palliative care consulted CAD - Cardiac cath 10/2015 diastolic dysfunction, aortic stenosis, moderate CAD, FFR in RCA. - PTCA done 12/2014 - Trop/ckmb negative - No acute ST changes on EKG DMII, controlled - Continue home Lantus - Mild SSI - ACHS accuchecks - Hypoglycemic protocol HTN - blood pressure at goal - Continue home Coreg, Verapamil Hypothyroidism - Continue home synthroid Leukocytosis, resolved - possibly 2/2 SBP Code Status: FULL DVT ppx: lovenox
[2018-08-01] MEDS: Enoxaparin Sodium 30 MG/0.3 ML SYRINGE SC SCH (10:11)
[2018-08-01] MEDS: Fish Oil 1,000 MG CAP PO SCH ×2 (10:12→21:07)
[2018-08-01] MEDS: Finasteride 5 MG TAB PO SCH (10:12)
[2018-08-01] MEDS: traMADol HCl 50 MG TAB PO SCH (10:13)
[2018-08-01] MEDS: Carvedilol 6.25 MG TAB PO SCH ×2 (10:13→21:07)
[2018-08-01] MEDS: Loratadine 10 MG TAB PO SCH (10:13)
[2018-08-01] MEDS: Levothyroxine 150 MCG TAB PO SCH (10:13)
--- NOTE | 2018-08-01 12:50 | PRG ---
DATE OF SERVICE: 08/01/2018 Mr. Valdez is sitting quietly in bed, in no distress. No new clinical changes and we will continue to follow up until peritoneal fluid is returned. If negative for bacteria he will likely be ready for discharge. In the meantime, we will continue antibiotics.
[2018-08-01] MEDS: Amitriptyline HCl 25 MG TAB PO SCH (21:07)
[2018-08-01] MEDS: Insulin Glargine 10 UNITS in Pre-Filled Syringe 1 EACH SC SCH (21:07)
[2018-08-01] MEDS: Mirtazapine 15 MG TAB PO SCH (21:07)
[2018-08-02] MEDS: cefTRIAXone\\ROCEPHIN 2 GM in Sodium Chloride 0.9% 100 ML IVPB SCH (04:22)
--- NOTE | 2018-08-02 06:15 | PDOC.FM ---
- Subjective Subjective: No overnight events. Is doing well and ready to go home. He felt dizzy and nauseous this morning after laying down. But is eating breakfast this morning and report nausea has mostly resolved. Denies pain. Voiding and stooling. - Objective MAR Reviewed: Yes Vital Signs & Weight: Vital Signs (12 hours) Temp Pulse Resp BP Pulse Ox 08/02/18 04:19 97.6 F 66 16 139/72 92 L 08/01/18 19:35 97.9 F 54 L 16 128/64 92 L Weight Admit Weight 81.193 kg Weight 81.828 kg I&O: 07/31/18 08/01/18 08/02/18 06:59 06:59 06:59 Intake Total 1095 960 850 Balance 1095 960 850 Result Diagrams: 07/31/18 04:18 07/31/18 04:18 Phys Exam - Physical Examination Constitutional: NAD Neck: supple Respiratory: no wheezing, clear to auscultation bilateral Cardiovascular: RRR systolic murmur Gastrointestinal: soft, non-tender, positive bowel sounds Musculoskeletal: pulses present Psychiatric: normal affect, A&O x 3 Skin: cap refill <2 seconds Dx/Plan (1) Fall Code(s): W19.XXXA - UNSPECIFIED FALL, INITIAL ENCOUNTER Status: Acute (2) Liver neoplasm Status: Acute (3) Bradycardia Code(s): R00.1 - BRADYCARDIA, UNSPECIFIED Status: Acute (4) Liver mass Code(s): R16.0 - HEPATOMEGALY, NOT ELSEWHERE CLASSIFIED Status: Acute (5) Anemia Code(s): D64.9 - ANEMIA, UNSPECIFIED Status: Chronic (6) BPH (benign prostatic hyperplasia) Code(s): N40.0 - BENIGN PROSTATIC HYPERPLASIA WITHOUT LOWER URINRY TRACT SYMP Status: Chronic (7) CAD (coronary artery disease) Code(s): I25.10 - ATHSCL HEART DISEASE OF [place] CORONARY ARTERY W/O ANG PCTRS Status: Chronic (8) Diabetes mellitus Code(s): E11.9 - TYPE 2 DIABETES MELLITUS WITHOUT COMPLICATIONS Status: Chronic (9) HLD (hyperlipidemia) Code(s): E78.5 - HYPERLIPIDEMIA, UNSPECIFIED Status: Chronic (10) HTN (hypertension) Code(s): I10 - ESSENTIAL (PRIMARY) HYPERTENSION Status: Chronic (11) Hypothyroid Code(s): E03.9 - HYPOTHYROIDISM, UNSPECIFIED Status: Chronic - Plan Plan: SBP - Asymptomatic - Fluid cloudy, RBCs 40,000 WBC 365 when corrected for rbcs - Cx NGTD @ 48hrs - Will d/c antibiotics and pt is okay to discharge, instructed to return for any fever or abdominal pain Fall - TTE in the last 3-4 months showing unchanged HFpEF (60% EF) - Negative CT brain - CMP at baseline, no hypoglycemia. Continue to monitor - Negative Orthostatic vital signs - Possible mechanical - OT rec pt return home with support from & receive HH PT services to increase independence with ADLs, functional transfers, strength and endurance back to [facility]. - CM consulted - Plan to f/u with Dr Teresa on Tuesday for staple removal Liver neoplasm - Being managed by oncology, on chemotherapy currently, Dr Lowe notified - Pt with recent change in therapy - Ammonia level nml - Mertazapine, Suplena for nutrition/wt loss - Palliative care consulted CAD - Cardiac cath 10/2015 diastolic dysfunction, aortic stenosis, moderate CAD, FFR in RCA. - PTCA done 12/2014 - Trop/ckmb negative - No acute ST changes on EKG DMII, controlled - Continue home Lantus - Mild SSI - ACHS accuchecks - Hypoglycemic protocol HTN - blood pressure at goal - Continue home Coreg, Verapamil Hypothyroidism - Continue home synthroid Leukocytosis, resolved - possibly 2/2 SBP Code Status: FULL DVT ppx: lovenox
[2018-08-02] MEDS: traMADol HCl 50 MG TAB PO SCH (08:20)
[2018-08-02] MEDS: Enoxaparin Sodium 30 MG/0.3 ML SYRINGE SC SCH (08:20)
[2018-08-02] MEDS: Levothyroxine 150 MCG TAB PO SCH (08:21)
[2018-08-02] MEDS: Loratadine 10 MG TAB PO SCH (08:22)
[2018-08-02] MEDS: Fish Oil 1,000 MG CAP PO SCH (08:22)
[2018-08-02] MEDS: Carvedilol 6.25 MG TAB PO SCH (08:22)
[2018-08-02] MEDS: Finasteride 5 MG TAB PO SCH (08:22)
[2018-08-02] MEDS: Ondansetron ODT 8 MG TAB PO PRN ×2 (08:29→09:23)
[2018-08-02 10:52] VITALS: BP 131/68
[2018-08-02 10:54] VITALS: TEMP 97.7
--- NOTE | 2018-08-02 13:10 | ADD-PRG ---
DATE OF SERVICE: 08/02/2018 This is an addendum to the note of Dr. Neha De León. Mr. Valdez's peritoneal fluid culture was negat gennaro. He continues to feel well and having no abdominal pain. His vital signs are stable and he is a febrile. He will be discharged to follow with his PCP on Tuesday.
--- NOTE | 2018-08-03 02:35 | DIS-2 ---
DATE OF ADMISSION: 07/30/2018 DATE OF DISCHARGE: 08/02/2018 RESIDENT: Neha De León, PGY-1. ADMITTING ATTENDING: Danita Hua M.D. DISCHARGE ATTENDING: Tono Martinez M.D. CONSULTATIONS: None. PRIMARY DIAGNOSES: 1. Spontaneous bacterial peritonitis. 2. Fall. SECONDARY DIAGNOSES: 1. Liver neoplasm. 2. Coronary artery disease. 3. Type 2 diabetes. 4. Hypertension. 5. Hypothyroidism. 6. Leukocytosis, resolved. DISCHARGE MEDICATIONS: 1. Amitriptyline 25 mg at bedtime. 2. Carvedilol 6.25 mg b.i.d. 3. Vitamin D3 of 2000 units daily. 4. Cyclobenzaprine 10 mg daily. 5. Finasteride 5 mg daily. 6. Fish oil 1 cap p.o. b.i.d. 7. Lantus 10 units at bedtime. 8. Levothyroxine 150 mcg daily. 9. Loratadine 10 mg daily. 10. Mirtazapine 15 mg at bedtime. 11. Zofran 8 mg p.o. daily. 12. Tramadol 50 mg daily. 13. Verapamil 360 mg daily. DISCONTINUED MEDICATIONS: None. HISTORY OF PRESENT ILLNESS AND HOSPITAL COURSE: Mr. Valdez is a very pleasant 77 -year-old male who presented with 2-week history of increasing instability and falls. He stood up from the table at dinner and fell. He was evaluated in the emergency room for this and had multiple CTs and x-rays done with ultimately no fractures. He did have multiple stephany placed in posterior or occiput to his head. He had negative orthostatic vitals, no hypoglycemia and electrolytes were all within normal limits. This was attributed to most likely a mechanical fall. He was evaluated by PT and OT. PT did not recommend any further intervention. O2 recommended the patient return home with support from and received home health PT services to increase his independence with his ADLs. He was found to have SBP, but paracentesis in the ED. He was asymptomatic, did not have abdominal pain at that time. Fluid was cloudy, had 40,000 red blood cells and 365 white blood cells after correction for rbcs. His peritoneal cultures were negative at 48 hours. He received 4 days of ceftriaxone. In regard to his liver neoplasm, Dr. Lowe was notified of admission. His medication regimen in regard to this is being managed by Oncology. His ammonia level was normal. Again, Palliative Care was consulted who did not recommend any further interventions. His chronic conditions of CAD, type 2 diabetes, hypertension, hypothyroidism well managed on his home medication and were stable throughout his hospitalization. DISCHARGE DISPOSITION: Stable. DISCHARGE INSTRUCTIONS: 1. Location: Home. 2. Diet: Heart healthy, diabetic. 3. Activity: No restrictions. 4. Follow up with PCP within 3-[address] Lowe. LORRI
== END 2018-08-02 12:28 | disposition home health service (06) | DRG 291 ==
LOC: ERS 21:51 → 2NO 07-30 00:30
PROVIDERS: ADMIT Family Medicine; ATTEND Family Medicine
PROC: 0HQ0XZZ Repair Scalp Skin, External Approach (ICD-10-PCS; principal; 2018-07-30)
PROC: 0W9G3ZX Drainage of Peritoneal Cavity, Percutaneous Approach, Diagnostic (ICD-10-PCS; 2018-07-30)
DX: I11.0 Hypertensive heart disease with heart failure (principal); K65.2 Spontaneous bacterial peritonitis; C22.9 Malignant neoplasm of liver, not specified as primary or secondary; R18.0 Malignant ascites; C78.6 Secondary malignant neoplasm of retroperitoneum and peritoneum; I50.32 Chronic diastolic (congestive) heart failure; W19.XXXA Unspecified fall, initial encounter; R00.1 Bradycardia, unspecified; D64.9 Anemia, unspecified; N40.0 Benign prostatic hyperplasia without lower urinary tract symptoms; I25.10 Atherosclerotic heart disease of native coronary artery without angina pectoris; E11.9 Type 2 diabetes mellitus without complications; E78.5 Hyperlipidemia, unspecified; E03.9 Hypothyroidism, unspecified; Z95.5 Presence of coronary angioplasty implant and graft; I35.0 Nonrheumatic aortic (valve) stenosis; D72.829 Elevated white blood cell count, unspecified; Z91.81 History of falling; M54.9 Dorsalgia, unspecified; G89.29 Other chronic pain; S01.81XA Laceration without foreign body of other part of head, initial encounter
CPT/HCPCS: 12002; 36415; 36416; 49082; 70450; 70486; 71045; 71260; 72125; 74177; 76705; 80053; 81003; 81015; 82042; 82140; 82553; 82945; 83605; 83690; 83735; 83880; 84484; 85025; 85060; 85610; 85730; 87070; 87205; 89051; 90471; 90662; 93005; 96365; 96367; 96375; A4216; G0008; G8978-GP-CK; G8979-GP-CK; G8980-GP-CK; G8987-GO-CJ; G8988-GO-CI; J0696; J1650; J2001; J2405; J2550; J3010; J7050

== ENCOUNTER 2018-08-18 12:27 | Day surgery (SDC) | payer MEDICARE, OTHER ==
[2018-08-18] MEDS ORDERED: Furosemide 20 MG TAB PO SCH (12:45)
[2018-08-18] MEDS ORDERED: diphenhydrAMINE 25 MG CAP PO SCH (12:45)
[2018-08-18] MEDS ORDERED: Acetaminophen 500 MG TAB PO SCH (12:45)
[2018-08-18 17:14] VITALS: BP 105/63; TEMP 97.7
== END 2018-08-18 17:21 | disposition home or self-care (01) ==
LOC: ONC/OP 12:27
PROVIDERS: ATTEND Internal Medicine Medical Oncology
DX: D64.9 Anemia, unspecified (principal); D69.6 Thrombocytopenia, unspecified; Z91.041 Radiographic dye allergy status; Z91.013 Allergy to seafood
CPT/HCPCS: 36430; 86850; 86900; 86901; 99211; G0463; P9016

== ENCOUNTER 2018-08-21 12:28 | Inpatient (IN) | payer MEDICARE, OTHER ==
[2018-08-21 13:36] LABS: INR-International Normal Ratio 1.1; Prothrombin Time 14.1 SEC (12.0-14.7)
[2018-08-21 13:37] LABS: #Basophils 0.1 thou/uL (0.0-0.2); #Eosinphils 0.2 thou/uL (0.0-0.7); #Lymphocytes 1.9 thou/uL (1.20-3.40); #Monocytes 0.8 thou/uL (0.11-0.59); #Neutrophils 5.1 thou/uL (1.40-6.50); %Basophils 1.3 % (0.0-1.0); %Eosinophils 2.7 % (0.0-10.0); %Lymphocytes 23.2 % (21.0-51.0); %Monocytes 9.6 % (0.0-10.0); %Neutrophils 63.2 % (42.0-75.0); Hemoglobin 10.1 g/dL (14.0-18.0); Mean Corpuscular Hemoglobin 28.3 pg (27.0-31.0); Mean Corpuscular Volume 91.3 fL (78.0-98.0); Mean Platelet Volume 10.2 fL (7.4-10.4); Platelet Count 304 thou/uL (130-400); RBC Distribution Width 18.5 % (11.5-14.5); Red Blood Cell (RBC) Count 3.58 mill/uL (4.70-6.10)
[2018-08-21 13:46] LABS: CKMB 1.6 ng/mL (0-6.6); Troponin I Less than 0.010 ng/mL (< 0.028)
[2018-08-21 14:12] LABS: Bilirubin Negative (Negative); Blood, Urine Trace (Negative); Clarity CLEAR (Clear); Glucose, Urine (Dipstick) Negative (Negative); Leukocyte Negative (Negative); Nitrite Negative (Negative); Protein, Urine (Dipstick) 100 mg/dL (Neg-Trace); Specific Gravity, Urine 1.014 (1.002-1.036); Urobilinogen 0.2 mg/dL (0.2-1.0); pH, Urine 6.5 (5.0-9.0)
[2018-08-21 14:14] LABS: Bacteria/HPF None Seen HPF (None Seen); Hyaline Casts/LPF 0-3 HYALINE CAST LPF (0-3 Hyaline); Pathc Cast-AUWi Flag 0.14 (0-2.49); RBC/HPF 0-3 HPF (0-3); Squamous Epithelial 0-3 HPF (0-3); WBC/HPF 0-3 HPF (0-3)
[2018-08-21 15:03] LABS: ALT (SGPT) 91 U/L (8-55); AST (SGOT) 249 U/L (5-34); Albumin 3.5 g/dL (3.4-4.8); Alkaline Phosphatase 377 U/L (40-150); Anion Gap 12 mmol/L (10-20); BUN (Urea Nitrogen) 68 mg/dL (8.4-25.7); Bilirubin, Total 0.2 mg/dL (0.2-1.2); Calc. Creatinine Clearance 0 mL/min (70-130); Calcium 9.3 mg/dL (7.8-10.44); Carbon Dioxide 24 mmol/L (23-31); Chloride 110 mmol/L (98-107); Estimated GFR-MDRD 14; Globulin 3.7 g/dL (2.4-3.5); Glucose 107 mg/dL (83-110); Lipase 50 U/L (8-78); Magnesium 1.8 mg/dL (1.6-2.6); Potassium 5.4 mmol/L (3.5-5.1); Protein, Total 7.2 g/dL (5.8-8.1); Sodium 141 mmol/L (136-145)
--- NOTE | 2018-08-21 15:05 | RAD ---
CHEST 1 VIEW: Date: 08/21/18 COMPARISON: 02/07/18. HISTORY: Abnormal lab results. Abnormal function regarding the kidney. FINDINGS: Portable upright chest demonstrates normal cardiac silhouette. Pulmonary vessels and hilum are normal . Costophrenic angles are clear. Chronic changes, without consolidation or mass. No pneumothorax or o sseous abnormalities. There are degenerative changes in both shoulders. There is blunting of both cos tophrenic angles. Small effusions are suspected in the abdomen. IMPRESSION: Bilateral small effusions. POS: [facility]
--- NOTE | 2018-08-21 16:39 | PDOC.FPRHP ---
- History of Present Illness Chief Complaint: abnormal labs History of Present Illness: Patient is a very pleasant 77YO gentleman w/ a PMH significant for recently diagnosed liver CA on IV chemo q2 weeks w/ Updivo and HTN, CAD, and hypothyroidism who presented to the ED after being called by his electrical service technician, Dr. Chan, to present to the ED for evaluation after having abnormal labs drawn on 08/18. Dr. Chan reported called the patient stating that his kidney function was severely decreased and his serum K was too high so the patient was immediately brought to the ED. Patient states that he also got a blood transfusion on 08/18 at the oncology center as his Hgb had dropped to just below 8 and that he has actually had more energy and strength since. He also denied any associated syncope, falls, dizziness, palpitations, or chest pain. Does endorse some SOB or inability to take a deep breath as well as LE edema. - Allergies/Adverse Reactions Allergies Allergy/AdvReac Type Severity Reaction Status Date / Time iodine Allergy Verified 04/27/17 14:01 kiwi Allergy Swollen Verified 04/27/17 14:01 Lips shellfish derived Allergy Verified 04/27/17 14:01 SHRIMP Allergy Uncoded 04/27/17 14:01 - Home Medications Medication Instructions Recorded Confirmed Type Cholecalciferol (Vitamin D3) 2,000 unit PO DAILY 08/04/13 07/30/18 History [Vitamin D3] Insulin Glargine,Hum.Rec.Anlog 10 unit SC HS 08/04/13 07/30/18 History [Lantus Solostar] Verapamil HCl [Verapamil HCl ER] 360 mg PO DAILY 08/04/13 07/30/18 History Amitriptyline HCl 25 mg PO HS 04/26/17 07/30/18 History Finasteride 5 mg PO DAILY 04/26/17 07/30/18 History Fish Oil/Borage/Flax/Om3,6,9 1 1 cap PO BID 04/26/17 07/30/18 History [[place] 3-6-9 Complex Softgel] Carvedilol 6.25 mg PO BID 07/30/18 07/30/18 History Cyclobenzaprine [Flexeril] 10 mg PO TID PRN 07/30/18 07/30/18 History Levothyroxine Sodium 150 mg PO DAILY 07/30/18 07/30/18 History Loratadine [Claritin] 10 mg PO DAILY 07/30/18 07/30/18 History Mirtazapine 15 mg PO HS 07/30/18 07/30/18 History Ondansetron [Zofran ODT] 8 mg PO DAILY PRN 07/30/18 07/30/18 History traMADol HCl [Tramadol HCl] 50 mg PO DAILY 07/30/18 07/30/18 History - History PMHx: liver malignancy on IV chemo Q2 weeks, HTN, HLD, anemia 2/2 malignancy, CAD, BPH, hypothyroidism, DMII PSHx: B/L knee replacements, multiple back surgeries, stent placement FHx: non-contributory Social: Lives at home with his . Denies any tobacco, EtOH or drug use. - Review of Systems General: reports: weight/appetite/sleep changes. denies: fever/chills Eyes: reports: vision changes, other (dry eyes) ENT: reports: other (xerostomia). denies: nasal congestion Respiratory: reports: shortness of breath. denies: cough, congestion Cardiovascular: reports: edema. denies: chest pain, palpitation Gastrointestinal: reports: diarrhea, constipation. denies: nausea, vomiting, abdominal pain, GI bleeding Genitourinary: reports: incontinence, dysuria. denies: polyuria Skin: denies: jaundice, itching Musculoskeletal: denies: tenderness, arthritis/arthralgias Neurological: reports: weakness. denies: syncope Psychological: denies: anxiety, depression - Vital signs BP: 147/80 HR: 60 RR: 22 Tmax: 97.9F Pox: 91% on RA Wt: 80kg - Physical Exam Constitutional: NAD, awake, alert and oriented HEENT: normocephalic and atraumatic, PERRLA, grossly normal vision, grossly normal hearing, oropharynx clear, other (purpur over right upper and lower periorbital area and right forehead) Neck: supple, FROM Heart: RRR, other -Heart: systolic flow murmur consistent w/ heard throughout; 2+ pitting edema in RLE up to knee w/ 1+ edema in LLE up to midcalf Lungs: no respiratory distress, no wheezing, no retractions, other (Crackles in B/L lung bases) Abdomen: bowel sounds present, other (Distended and mildly TTP in R upper and lower abdomen w/ masses palpated in RUQ; Small ventral abdominal hernia palpated in midline lower abdomen) Musculoskeletal: normal structure, ROM grossly normal Neurological: no focal deficit, CN II-XII intact, normal sensation Skin: no rash/lesions, good turgor, capillary refill <2 seconds, no jaundice -Heme/Lymphatic: purpura in both upper extremities Psychiatric: normal mood and affect, good judgment and insight, intact recent and remote memory FMR H&P: Results - Labs Result Diagrams: 08/21/18 13:05 08/21/18 14:27 Lab results: WBC 8.0 thou/uL (4.8-10.8) 08/21/18 13:05 Hgb 10.1 g/dL (14.0-18.0) L 08/21/18 13:05 Hct 32.7 % (42.0-52.0) L 08/21/18 13:05 MCV 91.3 fL (78.0-98.0) 08/21/18 13:05 Plt Count 304 thou/uL (130-400) 08/21/18 13:05 Neutrophils % 63.2 % (42.0-75.0) 08/21/18 13:05 Sodium 141 mmol/L (136-145) 08/21/18 14:27 Potassium 5.4 mmol/L (3.5-5.1) H 08/21/18 14:27 Chloride 110 mmol/L (98-107) H 08/21/18 14:27 Carbon Dioxide 24 mmol/L (23-31) 08/21/18 14:27 BUN 68 mg/dL (8.4-25.7) H 08/21/18 14:27 Creatinine 4.10 mg/dL (0.6-1.3) H 08/21/18 14:27 Glucose 107 mg/dL (83-110) 08/21/18 14:27 Calcium 9.3 mg/dL (7.8-10.44) 08/21/18 14:27 Total Bilirubin 0.2 mg/dL (0.2-1.2) 08/21/18 14:27 AST 249 U/L (5-34) H 08/21/18 14:27 ALT 91 U/L (8-55) H 08/21/18 14:27 Alkaline Phosphatase 377 U/L (40-150) H 08/21/18 14:27 CK-MB (CK-2) 1.6 ng/mL (0-6.6) 08/21/18 13:05 Serum Total Protein 7.2 g/dL (5.8-8.1) 08/21/18 14:27 Albumin 3.5 g/dL (3.4-4.8) 08/21/18 14:27 Lipase 50 U/L (8-78) 08/21/18 14:27 Urine Ketones Negative mg/dL (Negative) 08/21/18 13:47 Urine Blood Trace (Negative) H 08/21/18 13:47 Urine Nitrite Negative (Negative) 08/21/18 13:47 Ur Leukocyte Esterase Negative (Negative) 08/21/18 13:47 Urine RBC 0-3 HPF (0-3) 08/21/18 13:47 Urine WBC 0-3 HPF (0-3) 08/21/18 13:47 Ur Squamous Epith Cells 0-3 HPF (0-3) 08/21/18 13:47 Urine Bacteria None Seen HPF (None Seen) 08/21/18 13:47 - EKG Interpretation EKG: Sinus bradycardia w/ 1st degree AV block. - Radiology Interpretation Chest x-ray Status: image reviewed by me, report reviewed by me Additional comment: pleural effusions in B/L bases FMR H&P: A/P - Problem List (1) Acute renal failure (ARF) Current Visit: Yes Status: Acute (2) Hyperkalemia Current Visit: Yes Status: Acute Code(s): E87.5 - HYPERKALEMIA (3) Liver neoplasm Current Visit: No Status: Chronic (4) Anemia Current Visit: No Status: Chronic Code(s): D64.9 - ANEMIA, UNSPECIFIED Qualifiers: Anemia type: other cause (5) BPH (benign prostatic hyperplasia) Current Visit: No Status: Chronic Code(s): N40.0 - BENIGN PROSTATIC HYPERPLASIA WITHOUT LOWER URINRY TRACT SYMP (6) CAD (coronary artery disease) Current Visit: No Status: Chronic Code(s): I25.10 - ATHSCL HEART DISEASE OF [place] CORONARY ARTERY W/O ANG PCTRS (7) Diabetes mellitus Current Visit: No Status: Chronic Code(s): E11.9 - TYPE 2 DIABETES MELLITUS WITHOUT COMPLICATIONS Qualifiers: Diabetes mellitus type: type 2 (8) HLD (hyperlipidemia) Current Visit: No Status: Chronic Code(s): E78.5 - HYPERLIPIDEMIA, UNSPECIFIED (9) HTN (hypertension) Current Visit: No Status: Chronic Code(s): I10 - ESSENTIAL (PRIMARY) HYPERTENSION (10) Hypothyroid Current Visit: No Status: Chronic Code(s): E03.9 - HYPOTHYROIDISM, UNSPECIFIED - Plan Patient is a 77YO gentleman w/ a PMH significant for recently diagnosed liver malignancy on IV chemo w/ Updivo as well as hypothyroidism, CAD and HLD who presented to the ED due to urging from electrical service technician after having abnormal lab results in their office on 08/18/18. ARF - BUN/Cr ratio < 20 suggestive of intrinsic etiology. Possibly iatrogenic 2/2 chemotherapy vs. volume overload from undiagnosed CHF vs. volume overload 2/2 liver failure from liver neoplasm. - Will ensure all meds are renally dosed and avoid all nephrotoxic agents. - Will consult Dr. Chan for recommendations but will order urine studies including a urine Na & Cr in the meantime. Will also order a B/L renal U/S. - Will also order a BNP and get a repeat echo pending results due to significant volume overload on exam. Per last admission H&P last echo was within last 6 months and significant for HFpEF w/ EF of 60%. - Will hold off on IVFs for now given patient's overloaded clinical exam. Will actually consider gentle IVFs w/ diuresis as tolerated by patient. - Will continue to monitor renal function via QD AM CMPs. Hyperkalemia - K 5.7 on 08/18 and down to 5.4 on presentation to the ED. No peaked T waves noted on ECG. - Will give a dose of kayexalate w/ lactulose. - Will continue to monitor on telemetry and check AM CMPs to follow K and renal functions. Liver Malignancy - Aware, patient on IV chemo w/ Updivo Q2 weeks. Last treatment was this last Tuesday. - Will continue to monitor liver function w/ QD CMPs. Anemia 2/2 hepatic malignancy - Hgb up to 10.1 on admission s/p transfusion of 1 unit of PRBcs on 08/18. - Will continue to monitor H/H w/ QD AM CBCs. DMII - Aware, BG 107 on admission. - Will resume home insulin dose & start on CC, HH diet. Hypothyroidism - TSH and T4 check on 08/18 significant for TSH WNLs and elevated T4 at 15.8. - Will continue current synthroid dose. CAD - Aware w/ h/o stent placement - Will resume home statin. HTN - Aware, BP slightly elevated on presentation. - Will resume home meds. HLD - Aware, will resume home dose of statin therapy. BPH - Aware, will resume home finasteride dose. FMR H&P: Upper Level - Pertinent history Michael Valdez is a 77 year old male with a history of liver cancer, CAD, DM II, and Hypothyroidism who was sent to the ED by his PCP due to having abnormal labs. Pt had labwork done at his oncologists office on tuesday. He states that his hemoglobin was less than 8 in the office, so he was sent to the hospital on 08/18 to receive a unit of PRBCs. He was notified today that he had other abnormal labs and was referred to the ED. He has no complaints currently. - Pertinent findings Vitals: BP - 145/78 RR: 20 P:60 T: 97.6 O2: 92% on RA Physical Exam: General: alert and oriented x 3 Heart: regular rate and rhythm; 3-4/6 holosystolic murmur best heart at 2nd left intercostal space. Lungs: CTAB. Extremities: 1+ bilateral lower extremity pitting edema K+ - 5.4 BUN:Cr - 68:4.1 (33:2.31) - Plan Date/Time: 08/21/18 [id number] IHarriett, have evaluated this patient and agree with findings/plan as outlined by international bank manager resident. Pertinent changes/additions are listed here. Acute on chronic renal failure - likely intrinsic/immune related adverse event from Opdivo. - Will evaluate for prerenal, intrinsic, and postrenal causes; consider treatment with steroids 0.5 to 1 mg/kg/day prednisone - urine studies, renal US. - trend daily BMPs - nephro consult Bilateral lower extremity edema - differentials include volume overload from cardiac/renal etiology - will add on BNP and echo. Hyperkalemia - renal failure vs. tumor lysis - EKG showed no changes consistent with hyperkalemia. - will order lactulose to help remove K+ from the body. - trend with daily BMPs Liver cancer - on treatment with Opdivo - AFPs appear to be stable over the past several months. - may touch base with Onc during hospitalization to discuss case with them. DM - continue home medications. CAD - Resume home medications. Attending Addendum - Attending Addendum Date/Time: 08/21/182235 I personally evaluated the patient and discussed the management with Dr. Rai. I agree with the History, Examination, Assessment and Plan documented above with any addition or exceptions noted below- 77 yo male with h/o DM, HTN, CKD, hepatocellular carcinoma who presented after being called by his electrical service technician due to abnormal labs. Patient had labs drawn on Tuesday which returned as showinf a potassium of 5.6 and Cr of 4. Patient instructed to come to ER. Patient denies any abdomainl pain, N/V, change in urine volume or stream. Denies any flank pain, fever or chills. Currently on Opdivo for tx of his cancer. PMH/PSH/Meds/All reviewed and agree with residents documentation. Afebrile VSS. Exam repeated by me and agree with residents findings. Labs: K= 5.4, BUN/Cr=66/4.1, FXN=1519. A/P: 1) Acute kidney injury with CKD- admit to tele. Consult nephrology. Check urine studies. Consider renal USG. 2) DM- monitor accuchecks and continue home meds. 3) HTN- monitor BP. 4) Hyperkalemia- no EKG changes; recheck in am.
[2018-08-21 18:16] LABS: Troponin I Less than 0.010 ng/mL (< 0.028)
[2018-08-21] MEDS ORDERED: Acetaminophen 325 MG TAB PO PRN ×2 (19:47→19:54)
[2018-08-21] MEDS ORDERED: Sodium Chloride 0.9% 1,000 ML IV SCH (19:47)
[2018-08-21] MEDS ORDERED: Ondansetron ODT 4 MG TAB SL PRN (19:47)
[2018-08-21] MEDS ORDERED: Ondansetron HCl/PF 4 MG/2 ML Vial IVP PRN (19:47)
[2018-08-21] MEDS ORDERED: Cyclobenzaprine 10 MG TAB PO PRN (19:54)
[2018-08-21] MEDS ORDERED: Ondansetron ODT 8 MG TAB PO PRN (19:54)
[2018-08-21 20:29] LABS: Troponin I Less than 0.010 ng/mL (< 0.028)
[2018-08-21] MEDS ORDERED: Dextrose 50% Abboject 50 ML SYRINGE SLOW IVP PRN (20:43)
[2018-08-21] MEDS ORDERED: Dextrose 5% in Water 1,000 ML IV PRN (20:43)
[2018-08-21] MEDS ORDERED: HumaLOG 300 UNITS/3 ML VIAL SC PRN (20:43)
[2018-08-21] MEDS ORDERED: Non-Formulary Item 1 EACH (Insulin Glargine,Hum.Rec.Anlog [Lantus Solostar] 10 UNIT) SC SCH (21:00)
[2018-08-21] MEDS ORDERED: Amitriptyline HCl 25 MG TAB PO SCH ×2 (21:00→22:30)
[2018-08-21] MEDS ORDERED: Mirtazapine 15 MG TAB PO SCH ×2 (21:00→22:30)
[2018-08-21] MEDS ORDERED: Heparin 5,000 UNITS/ML VIAL SC SCH ×2 (21:00→22:30)
[2018-08-21] MEDS ORDERED: Carvedilol 6.25 MG TAB PO SCH ×2 (21:00→22:30)
[2018-08-21] MEDS ORDERED: Insulin Glargine 10 UNITS in Pre-Filled Syringe 1 EACH SC SCH (21:00)
[2018-08-22 05:25] VITALS: BMI 30.2
[2018-08-22 05:43] LABS: Band 4 % (5-11); Eosinophils 1 % (0-10); Hemoglobin 9.1 g/dL (14.0-18.0); Lymphocytes 21 % (21-51); MDiff Complete? YES; Mean Corpuscular HGB CONC 30.6 g/dL (32.0-36.0); Mean Corpuscular Hemoglobin 27.9 pg (27.0-31.0); Mean Corpuscular Volume 91.3 fL (78.0-98.0); Mean Platelet Volume 9.9 fL (7.4-10.4); Monocytes 8 % (0-10); Neutrophil 66 % (42-75); PLT Morphology Comment Appears Adequate; Platelet Count 293 thou/uL (130-400); RBC Distribution Width 18.2 % (11.5-14.5); Red Blood Cell (RBC) Count 3.25 mill/uL (4.70-6.10); White Blood Cell (WBC) Count 9.2 thou/uL (4.8-10.8)
--- NOTE | 2018-08-22 05:47 | PDOC.FM ---
- Subjective Subjective: Patient required supplemental O2 via NC overnight to maintain sats. Denies any chest pain, palpitations, N/V, or abdominal pain. Says is breathing is improved compared to yesterday. Does endorse some diarrhea from medications given last night. Also endorses hypoglycemia this AM and says his home insulin dose is 6 units rather than 12. States he felt better after some apple juice. Does endorse urge type incontinence where he is unable to make it to the bathroom in time to urinate. Does feel like he is able to empty his bladder completely when he voids and denies any nocturia or frequency. - Objective MAR Reviewed: Yes Vital Signs & Weight: Vital Signs (12 hours) Temp Pulse Resp BP BP Pulse Ox 08/22/18 04:55 97.5 F L 75 18 135/84 96 08/22/18 03:48 150/70 H 08/21/18 23:50 97.7 F 67 18 152/78 H 95 08/21/18 23:06 150/70 H 08/21/18 20:00 98 F 63 18 150/72 H 95 08/21/18 19:15 98 F 63 18 150/72 H 95 Weight Weight 129.727 kg Result Diagrams: 08/22/18 04:38 08/22/18 04:38 Radiology Reviewed by me: Yes Radiology: CXR this AM stable from yesterday w/ B/L pleural effusions w/ R>L. <Suzanne Rai - Last Filed: 08/22/18 09:13> - Objective Vital Signs & Weight: Vital Signs (12 hours) Temp Pulse Resp BP BP Pulse Ox 08/22/18 11:51 97.7 F 74 18 150/80 H 94 L 08/22/18 07:56 97.5 F L 77 16 174/93 H 98 08/22/18 04:55 97.5 F L 75 18 135/84 96 08/22/18 03:48 150/70 H Weight Weight 129.727 kg I&O: 08/21/18 08/22/18 08/23/18 06:59 06:59 06:59 Intake Total 480 Balance 480 Result Diagrams: 08/22/18 04:38 08/22/18 04:38 <Armani Motta - Last Filed: 08/22/18 12:25> Phys Exam - Physical Examination Constitutional: NAD HEENT: moist MMs Neck: supple, full ROM Respiratory: no wheezing, no rhonchi trace crackles in bases, L > R; no increased work of breathing on 2L NC Cardiovascular: RRR significant systolic flow murmur heard throughout but heard best in R sternal border Gastrointestinal: positive bowel sounds (hyperactive) moderate distension Musculoskeletal: edema present Neurological: non-focal, normal sensation, moves all 4 limbs Psychiatric: normal affect, A&O x 3 Skin: no rash, cap refill <2 seconds <Suzanne Rai - Last Filed: 08/22/18 09:13> Dx/Plan (1) Acute renal failure (ARF) Status: Acute (2) Hyperkalemia Code(s): E87.5 - HYPERKALEMIA Status: Acute (3) Liver neoplasm Status: Chronic (4) Anemia Code(s): D64.9 - ANEMIA, UNSPECIFIED Status: Chronic Qualifiers: Anemia type: other cause (5) BPH (benign prostatic hyperplasia) Code(s): N40.0 - BENIGN PROSTATIC HYPERPLASIA WITHOUT LOWER URINRY TRACT SYMP Status: Chronic (6) CAD (coronary artery disease) Code(s): I25.10 - ATHSCL HEART DISEASE OF [place] CORONARY ARTERY W/O ANG PCTRS Status: Chronic (7) Diabetes mellitus Code(s): E11.9 - TYPE 2 DIABETES MELLITUS WITHOUT COMPLICATIONS Status: Chronic Qualifiers: Diabetes mellitus type: type 2 (8) HLD (hyperlipidemia) Code(s): E78.5 - HYPERLIPIDEMIA, UNSPECIFIED Status: Chronic (9) HTN (hypertension) Code(s): I10 - ESSENTIAL (PRIMARY) HYPERTENSION Status: Chronic (10) Hypothyroid Code(s): E03.9 - HYPOTHYROIDISM, UNSPECIFIED Status: Chronic - Plan Plan: Patient is a 77YO gentleman w/ a PMH significant for recently diagnosed liver malignancy on IV chemo w/ Updivo as well as hypothyroidism, CAD and HLD who presented to the ED due to urging from garde manager after having abnormal lab results in their office on 08/18/18. ARF - BUN/Cr ratio < 20 suggestive of intrinsic etiology. Possibly iatrogenic 2/2 chemotherapy vs. volume overload from undiagnosed CHF vs. volume overload 2/2 hepatorenal syndrome from liver neoplasm. - Calculated FeNa suggestive of post-obstructive etiology. Will consider a post- void residual bladder scan to assess for post-obstructive cause of ARF. - Will consider ordering a serum phosphorus as well to assess for possible tumor lysis syndrome as possible; although less likely as patient is weeks into chemotherapy. - Will ensure all meds are renally dosed and avoid all nephrotoxic agents. - Will consult Dr. Chan with nephrology this morning for further recommendations. - Renal U/S ordered for today. - BNP just over 1,400 suggestive of CHF exacerbation. Will get an echo this AM. Repeat CXR stable from admission per radiology reading. - Will continue to monitor renal function via QD AM CMPs. Hyperkalemia - K down to 4.8 this AM s/p kayexalate & lactulose. - Will continue to monitor on telemetry and check AM CMPs to follow K and renal function. Hypoglycemia - BG 59 this AM and recheck after apple juice was still low at 62. Patient received recorded insulin dose of 10 units QHS but per patient this AM PCP has had him on 6 units of Lantus QHS. Will hold all home insulin for now as LFTs continue to trend up. - Will continue w/ ACHS accuchecks. Liver Malignancy - Aware, patient on IV chemo w/ Updivo Q2 weeks. Last treatment was this last Tuesday. - Will continue to monitor liver function w/ QD CMPs. Anemia 2/2 hepatic malignancy - Hgb down to 9.1 this AM. - Will continue to monitor closely w/ daily H/H w/ QD AM CBCs. DMII - Aware, - Will continue CC, HH diet but hold home insulin 2/2 hypoglycemia this AM as liver dysfunction is likely contributing to this. - Will continue w/ hypoglycemia protocol and ACHS accuchecks. Hypothyroidism - Will continue current synthroid dose. CAD - Aware w/ h/o stent placement - Will continue home statin. HTN - Aware, BP slightly elevated on presentation. - Will continue home meds. HLD - Aware, will continue home dose of statin therapy. BPH - Aware, will continue home finasteride dose. <Suzanne Rai - Last Filed: 08/22/18 09:13> Attending Addendum - Attending Addendum Date/Time: 08/22/18 1224 I personally evaluated the patient and discussed the management with Dr. Rai. I agree with the History, Examination, Assessment and Plan documented above with any addition or exceptions noted below. Patient here for worsening renal function that appears related to intrinsic causes. It is somewhat improved today and he has no further hyperkalemia. Renal on board. U/S of kidneys pending. Will direct further mgmt per Nephro recs. Courtesy call to Oncology in the case this worsening in renal function could be due to his chemotherapy regimen. <Armani Motta - Last Filed: 08/22/18 12:25>
[2018-08-22 06:04] LABS: ALT (SGPT) 98 U/L (8-55); AST (SGOT) 271 U/L (5-34); Albumin 3.2 g/dL (3.4-4.8); Alkaline Phosphatase 363 U/L (40-150); Anion Gap 14 mmol/L (10-20); BUN (Urea Nitrogen) 63 mg/dL (8.4-25.7); Bilirubin, Total 0.3 mg/dL (0.2-1.2); Calc. Creatinine Clearance 29 mL/min (70-130); Carbon Dioxide 23 mmol/L (23-31); Chloride 112 mmol/L (98-107); Estimated GFR-MDRD 15; Globulin 3.3 g/dL (2.4-3.5); Potassium 4.8 mmol/L (3.5-5.1); Protein, Total 6.5 g/dL (5.8-8.1); Sodium 144 mmol/L (136-145)
[2018-08-22 06:06] LABS: Glucose 59 mg/dL (83-110)
[2018-08-22] MEDS: Levothyroxine 150 MCG TAB PO SCH (07:19)
--- NOTE | 2018-08-22 07:39 | RAD ---
CHEST 1 VIEW: Date: 08/22/18 HISTORY: 77-year-old male with history of increased O2 requirements, follow-up effusions. COMPARISON: 08/21/18. FINDINGS: Mild bilateral vascular congestion with some persistent bilateral costophrenic angle blunting, slight ly worse on the right side, with a stable appearance from prior study. Heart size is within normal li mits. Arthrosis changes of both shoulder joints and associated degenerative change. IMPRESSION: Stable bilateral vascular congestion and small pleural effusion, slightly larger on the right side. N o significant new process. POS: LUCAS
[2018-08-22] MEDS: Carvedilol 6.25 MG TAB PO SCH ×2 (09:51→21:08)
[2018-08-22] MEDS: Fish Oil 1,000 MG CAP PO SCH ×2 (09:52→21:08)
[2018-08-22] MEDS: Heparin 5,000 UNITS/ML VIAL SC SCH ×3 (09:52→21:09)
[2018-08-22] MEDS: Finasteride 5 MG TAB PO SCH (09:52)
[2018-08-22] MEDS: traMADol HCl 50 MG TAB PO SCH (09:53)
[2018-08-22] MEDS: Loratadine 10 MG TAB PO SCH (09:53)
--- NOTE | 2018-08-22 10:43 | CON ---
DATE OF CONSULTATION: 08/22/2018 REASON FOR CONSULTATION: Elevated creatinine and hyperkalemia. HISTORY OF PRESENT ILLNESS: This is a very pleasant 77-year-old gentleman who is being treated for l iver cancer who was noted to have a potassium of more than 5 and creatinine had doubled. The patient is receiving Opdivo every 2 weeks. The patient denies headache, numbness, tingling or weakness. De nies any nausea, vomiting or chest pain. He does have some dyspnea as well as edema. PAST MEDICAL HISTORY: Liver cancer on chemotherapy, coronary artery disease, BPH, hypothyroidism, hi story of bilateral knee replacement, multiple back surgeries, stent placement. FAMILY HISTORY: Negative for ESRD. SOCIAL HISTORY: No alcohol or drug use. REVIEW OF SYSTEMS: A 15-point review of systems was performed and negative except positives above. GENERAL: Weakness- HEAD: Headache- NECK: No swelling or lumps. NOSE: No epistaxis or discharge. EYES: No diplopia or pain. RESPIRATORY: Dyspnea- CARDIOVASCULAR: Chest pain- GASTROINTESTINAL: Nausea- /[employer]: Hematuria- MUSCULOSKELETAL: No joint pain. NEUROPSYCHIATIC SYSTEMS: No suicidal ideation. No ideation. SKIN: Denies any rash or ulcer. CONSTITUTIONAL: No fever or chills. HOME MEDICATIONS: List reviewed. PHYSICAL EXAMINATION: GENERAL: Patient is awake, alert. VITAL SIGNS: Pulse 60, breathing 16, blood pressure 147/80. OBJECTIVE: See above. Awake, alert, in no acute distress. GENERAL APPEARANCE AND MENTAL STATUS: Fair. HEAD/NECK: Normocephalic. Atraumatic. EYES: EOMI. No deformity. EARS: Clear. No ulcers. NOSE: Intact. No lesions. MOUTH: Clear. No discharge. THROAT: Clear. No exudate. LUNGS: Clear. No crackles. CARDIAC: S1, S2. No rub. ABDOMEN: Benign. BS+. GENITALIA/RECTUM: Larsen absent. BACK/EXTREMITIES: Edema 0+ Ulcer- NEUROLOGICAL: Alert and motor intact. SKIN: Rash- Bruise- LYMPHATICS: Edema- Ulcer- LABORATORY: Creatinine is 3.8, potassium is 4.8. ASSESSMENT AND RECOMMENDATIONS: 1. Acute kidney injury, stable. 2. Hypertension, stable. 3. Anemia, stable. 4. Acute kidney injury is most likely due to cardiorenal syndrome. Again, there is no urgent indica tion for dialysis.
--- NOTE | 2018-08-22 11:38 | ULT ---
RENAL ULTRASOUND: History: Acute renal failure. FINDINGS: Kidneys appear unremarkable. Right kidney measures 9 cm in length and left kidney measures 10 cm in l ength. There is no hydronephrosis. Cortical thickness and echogencity appears preserved. There is a c yst from the inferior lateral left kidney measuring approximately 3 cm. Images of the bladder reveal echogenic debris in the floor of the bladder suggesting multiple tiny st ones or gravel. Gallbladder wall thickening. IMPRESSION: 1. Unremarkable renal ultrasound with left renal cysts identified as described. 2. Images through the bladder shows evidence of bladder wall thickening and echogenic debris layering dependently in the bladder floor, possibly tiny stones. POS: LUCAS
[2018-08-22] MEDS ORDERED: Amitriptyline HCl 25 MG TAB PO SCH (21:00)
[2018-08-22] MEDS ORDERED: Mirtazapine 15 MG TAB PO SCH (21:00)
[2018-08-23] MEDS: Levothyroxine 150 MCG TAB PO SCH (05:25)
--- NOTE | 2018-08-23 06:13 | PDOC.FM ---
- Subjective Subjective: NAEO. Patient states he feels very well this morning. Denies any chest pain, SOB , or abdominal pain. Says he did get the echo yesterday and PT stopped by twice but never actually evaluated him. States he owes them a walk today. - Objective MAR Reviewed: Yes Vital Signs & Weight: Vital Signs (12 hours) Temp Pulse Resp BP BP Pulse Ox 08/23/18 04:00 97.5 F L 69 18 157/76 H 92 L 08/22/18 21:08 141/70 H 08/22/18 20:00 96.7 F L 57 L 20 141/70 H 95 Weight Weight 83.915 kg I&O: 08/21/18 08/22/18 08/23/18 06:59 06:59 06:59 Intake Total 480 805 Output Total 900 Balance 480 -95 Result Diagrams: 08/23/18 06:19 08/23/18 06:18 <Suzanne Rai - Last Filed: 08/23/18 10:22> - Objective Vital Signs & Weight: Vital Signs (12 hours) Temp Pulse Pulse Pulse Resp BP BP 08/23/18 09:49 73 80 180/87 H 186/98 H 08/23/18 08:00 98.2 F 72 17 08/23/18 04:00 97.5 F L 69 18 BP Pulse Ox 08/23/18 09:49 08/23/18 08:00 153/80 H 93 L 08/23/18 04:00 157/76 H 92 L Weight Weight 83.915 kg I&O: 08/22/18 08/23/18 08/24/18 06:59 06:59 06:59 Intake Total 480 805 Output Total 900 Balance 480 -95 Result Diagrams: 08/23/18 06:19 08/23/18 06:18 <Armani Motta - Last Filed: 08/23/18 11:47> Phys Exam - Physical Examination Constitutional: NAD HEENT: moist MMs Neck: supple, full ROM Respiratory: no wheezing, no rhonchi Cardiovascular: RRR systolic flow murmur heard best in R sternal border Gastrointestinal: positive bowel sounds + distension but decreased since admission Musculoskeletal: pulses present, edema present 2+ pitting edema in RLE up to knee & 1+ in LLE up to midcalf Neurological: non-focal, normal sensation, moves all 4 limbs Psychiatric: normal affect, A&O x 3 Skin: no rash, normal turgor, cap refill <2 seconds <Suzanne Rai - Last Filed: 08/23/18 10:22> Dx/Plan (1) SIVA (acute kidney injury) Code(s): N17.9 - ACUTE KIDNEY FAILURE, UNSPECIFIED Status: Acute (2) Hyperkalemia Code(s): E87.5 - HYPERKALEMIA Status: Acute (3) Liver neoplasm Status: Chronic (4) Anemia Code(s): D64.9 - ANEMIA, UNSPECIFIED Status: Chronic Qualifiers: Anemia type: other cause (5) BPH (benign prostatic hyperplasia) Code(s): N40.0 - BENIGN PROSTATIC HYPERPLASIA WITHOUT LOWER URINRY TRACT SYMP Status: Chronic (6) CAD (coronary artery disease) Code(s): I25.10 - ATHSCL HEART DISEASE OF [place] CORONARY ARTERY W/O ANG PCTRS Status: Chronic (7) Diabetes mellitus Code(s): E11.9 - TYPE 2 DIABETES MELLITUS WITHOUT COMPLICATIONS Status: Chronic Qualifiers: Diabetes mellitus type: type 2 (8) HLD (hyperlipidemia) Code(s): E78.5 - HYPERLIPIDEMIA, UNSPECIFIED Status: Chronic (9) HTN (hypertension) Code(s): I10 - ESSENTIAL (PRIMARY) HYPERTENSION Status: Chronic (10) Hypothyroid Code(s): E03.9 - HYPOTHYROIDISM, UNSPECIFIED Status: Chronic - Plan Plan: Patient is a 77YO gentleman w/ a PMH significant for recently diagnosed liver malignancy on IV chemo w/ Updivo as well as hypothyroidism, CAD and HLD who presented to the ED due to urging from supervisor mixing after having abnormal lab results in their office on 08/18/18. ARF - BUN/Cr ratio < 20 suggestive of intrinsic etiology but calculated FeNa suggestive of post-obstructive etiology. Renal U/S negative. - Per nephro likely cardiorenal in origin. Echo yesterday showed a reduced EF of 45-50%. Will consider diuresis today to improve renal function and edema. Will clear with nephrology. - Will ensure all meds are renally dosed and avoid all nephrotoxic agents. - Will continue to monitor renal function via QD AM CMPs. Hypomagnesemia - Mg 1.4 this AM - Will replace and continue to monitor while here w/ AM labs. Deconditioning - PT consulted to evaluate the patient for dispo. Will likely need home PT. Would do well with this. - Will await recommendations regarding dispo for potential discharge later today. Liver Malignancy - Aware, patient on IV chemo w/ Updivo Q2 weeks. Last treatment was this last Tuesday. - Will continue to monitor liver function w/ QD CMPs. Anemia 2/2 hepatic malignancy - Hgb stable at 9.1 this AM. - Will continue to monitor closely w/ daily AM CBCs. DMII - Aware. - Will continue CC, HH diet & holding home insulin. - Will continue w/ hypoglycemia protocol and ACHS accuchecks. Hyperkalemia - Resovled as K was 4.9 this AM. - Will continue to monitor on telemetry and check AM CMPs to follow K and renal function. Hypoglycemia - Resolved as BG was 72 this AM. - Will continue to hold home insulin as BG has been low to WNLs since admission. - Will continue w/ ACHS accuchecks & hypoglycemia protocol. Hypothyroidism - Will continue current synthroid dose. CAD - Aware w/ h/o stent placement - Will continue home statin. HTN - Aware, BP slightly elevated on presentation. - Will continue home meds. HLD - Aware, will continue home dose of statin therapy. BPH - Aware, will continue home finasteride dose. Dispo: Possible discharge home later today w/ PT at home. <Suzanne Rai - Last Filed: 08/23/18 10:22> Attending Addendum - Attending Addendum Date/Time: 08/23/18 [id number] I personally evaluated the patient and discussed the management with Dr. Rai. I agree with the History, Examination, Assessment and Plan documented above with any addition or exceptions noted below. Patient doing well, renal values improved. Unknown etiology but not felt to be due to his chemotherapy regimen. He has close outpatient nephrology follow up and will likely discharge home today if cleared by Nephro. <Armani Motta - Last Filed: 08/23/18 11:47>
[2018-08-23 06:33] LABS: #Basophils 0.1 thou/uL (0.0-0.2); #Eosinphils 0.2 thou/uL (0.0-0.7); #Lymphocytes 2.1 thou/uL (1.20-3.40); #Monocytes 0.8 thou/uL (0.11-0.59); #Neutrophils 5.1 thou/uL (1.40-6.50); %Basophils 0.8 % (0.0-1.0); %Eosinophils 2.3 % (0.0-10.0); %Lymphocytes 25.1 % (21.0-51.0); %Monocytes 10.1 % (0.0-10.0); %Neutrophils 61.7 % (42.0-75.0); Hemoglobin 9.1 g/dL (14.0-18.0); Mean Corpuscular HGB CONC 31.2 g/dL (32.0-36.0); Mean Corpuscular Hemoglobin 28.5 pg (27.0-31.0); Mean Corpuscular Volume 91.5 fL (78.0-98.0); Mean Platelet Volume 9.6 fL (7.4-10.4); Platelet Count 258 thou/uL (130-400); RBC Distribution Width 18.3 % (11.5-14.5); Red Blood Cell (RBC) Count 3.18 mill/uL (4.70-6.10); White Blood Cell (WBC) Count 8.3 thou/uL (4.8-10.8)
[2018-08-23 06:48] LABS: ALT (SGPT) 101 U/L (8-55); AST (SGOT) 248 U/L (5-34); Albumin 3.2 g/dL (3.4-4.8); Alkaline Phosphatase 382 U/L (40-150); Anion Gap 13 mmol/L (10-20); BUN (Urea Nitrogen) 58 mg/dL (8.4-25.7); Bilirubin, Total 0.3 mg/dL (0.2-1.2); Calc. Creatinine Clearance 21 mL/min (70-130); Calcium 8.8 mg/dL (7.8-10.44); Carbon Dioxide 22 mmol/L (23-31); Chloride 109 mmol/L (98-107); Estimated GFR-MDRD 18; Globulin 3.4 g/dL (2.4-3.5); Glucose 72 mg/dL (83-110); Magnesium 1.4 mg/dL (1.6-2.6); Phosphorus 4.1 mg/dL (2.3-4.7); Potassium 4.9 mmol/L (3.5-5.1); Protein, Total 6.6 g/dL (5.8-8.1); Sodium 139 mmol/L (136-145)
[2018-08-23] MEDS ORDERED: Magnesium 2 GM/50 ML 2 GM in Premix Bag 1 BAG IVPB SCH (07:45)
[2018-08-23] MEDS: Fish Oil 1,000 MG CAP PO SCH (09:40)
[2018-08-23] MEDS: traMADol HCl 50 MG TAB PO SCH (09:40)
[2018-08-23] MEDS: Loratadine 10 MG TAB PO SCH (09:41)
[2018-08-23] MEDS: Carvedilol 6.25 MG TAB PO SCH (09:41)
[2018-08-23] MEDS: Finasteride 5 MG TAB PO SCH (09:42)
[2018-08-23] MEDS: Heparin 5,000 UNITS/ML VIAL SC SCH (09:42)
--- NOTE | 2018-08-23 11:56 | PRG ---
DATE OF SERVICE: 08/23/2018 SUBJECTIVE: This is a 77-year-old gentleman being seen for acute kidney injury and hyperkalemia. Th e patient denies any nausea, vomiting or chest pain. PHYSICAL EXAMINATION: GENERAL: Patient is awake, alert. VITAL SIGNS: Afebrile, pulse 75, breathing 16, blood pressure 157/76. HEAD/NECK: Normocephalic. Atraumatic. EYES: EOMI. No deformity. EARS: Clear. No ulcers. NOSE: Intact. No lesions. MOUTH: Clear. No discharge. THROAT: Clear. No exudate. LUNGS: Clear. No crackles. CARDIAC: S1, S2. No rub. ABDOMEN: Benign. BS+. GENITALIA/RECTUM: Larsen absent. BACK/EXTREMITIES: Edema 0+ Ulcer- NEUROLOGICAL: Alert and motor intact. SKIN: Rash- Bruise- LYMPHATICS: Edema- Ulcer- LABORATORY DATA: Show hemoglobin 9.1, potassium 4.9, creatinine 3.2. ASSESSMENT AND PLAN: 1. Chronic kidney disease stage 4, stable. 2. Hypertension stable. 3. Anemia, stable. 4. Acute kidney injury improved. No indication for dialysis. The patient will see me in one week.
[2018-08-23 16:23] VITALS: BP 124/65; TEMP 97.3
--- NOTE | 2018-08-24 00:01 | DIS-2 ---
DATE OF ADMISSION: 08/21/2018 DATE OF DISCHARGE: 08/23/2018 RESIDENT: Suzanne Rai MD ADMITTING ATTENDING: Danita Hua M.D. DISCHARGE ATTENDING: Armani Motta MD CONSULTATIONS: Nephrology, Dr. Nelson Chan. No other consults. PROCEDURES: 1. Chest x-ray on 08/21/2018, which showed bilateral small effusions. 2. Check chest x-ray on 08/22/2018, which showed stable bilateral vascular congestion, small pleural effusion, slightly larger on the right side. No significant new process. 3. Echocardiogram, which showed moderate concentric left ventricular hypertrophy and an ejection fra ction estimated at 50%-55% with severe mitral regurgitation, severe tricuspid regurgitation and sever e aortic stenosis. PRIMARY DISCHARGE DIAGNOSES: 1. Hyperkalemia. 2. Acute kidney injury superimposed on chronic kidney disease stage 4. 3. Hypoglycemia. 4. Hypomagnesemia. 5. Transaminitis. 6. Congestive heart failure with preserved ejection fraction. 7. Acute exacerbation of congestive heart failure with preserved ejection fraction. SECONDARY DIAGNOSES: 1. Type 2 diabetes mellitus. 2. Anemia of chronic disease. 3. Chronic kidney disease stage 4. 4. Hypertension. 5. Hyperlipidemia. 6. Benign prostatic hypertrophy. 7. Coronary artery disease, status post stent placement. 8. Liver malignancy. 9. Hypothyroidism. DISCHARGE MEDICATIONS: 1. Fish oil 1 capsule p.o. b.i.d. 2. Loratadine 10 mg p.o. daily. 3. Tramadol 50 mg p.o. daily. 4. Acetaminophen 650 mg p.o. q.4. p.r.n. for pain. 5. Amitriptyline 25 mg p.o. at bedtime. 6. Coreg 6.25 mg p.o. b.i.d. 7. Cholecalciferol 2000 units p.o. daily. 8. Flexeril 10 mg p.o. t.i.d. p.r.n. 9. Finasteride 5 mg p.o. daily. 10. Levothyroxine sodium 150 mg p.o. daily. 11. Mirtazapine 50 mg p.o. at bedtime. 12. Ondansetron 8 mg p.o. daily p.r.n. 13. Verapamil HCL mg p.o. daily. DISCONTINUED MEDICATIONS: Lantus Solostar 10 units subcutaneously at bedtime. HOSPITAL COURSE: The patient is a very pleasant 77-year-old gentleman with a past medical history significant for liver malignancy on IV chemo, every 2 weeks, hypertension, coronary ar asher disease, hypothyroidism, and CKD stage 4, who presented to the emergency department after being called by his rac specialist, Dr. Nelson Chan, requesting that he presented to the emergency department f or evaluation after having abnormal labs drawn in their office on 08/18/2018. Of note, the patient's creatinine was noted to be 2 times greater than his baseline at 4.09. His potassium was significant ly elevated at 5.7 on 08/18/2018. Upon presentation to the Emergency Department, routine labs were d rawn which revealed that the patient's creatinine was still elevated at 4.10 and his potassium was al so elevated at 5.4. Also, of note, the patient's liver function tests were all significantly elevate d with an AST of 249, ALT of 91, alkaline phosphatase of 377. A BMP was also obtained which was elev ated at 1443.5. While in the emergency department, the patient had an EKG, which was negative for an y acute changes in relation to his hyperkalemia. He also had a chest x-ray which showed some small b ilateral pleural effusions. His vitals were noted to be within normal limits on presentation and he was satting well on room air. The patient was given no medications while in the emergency department , but was admitted for close observation overnight. After arriving to the floor, the patient was giv en a 1 time dose of Kayexalate with lactulose in order to reduce his serum potassium level. The following morning, the patient's potassium was noted to be within normal limits at 4.8 and his cr eatinine had decreased slightly to 3.87. However, the patient did have significant hypoglycemia that morning if blood glucose was measured at 59 after receiving 10 units of Lantus the first night of hi s hospitalization. Of note, the patient reported that he had only been taking 6 units at bedtime. H owever, due to his significantly reduced hepatic function, we decided to hold his entire insulin yomi men for the remainder of his hospital stay. Later that morning, the patient's rac specialist, Dr. Nelson Chan was consulted and came and evaluated the patient. Dr. Chan stated there was no need for emerge nt hemodialysis and believes that the increase in the patient's serum creatinine was cardiorenal in o rigin. Thus, in order to workup a possible cardiorenal etiology for the patient's SIVA and echocardio gram was obtained later that day, which was significant for possible CHF with preserved ejection frac tion. The patient was therefore monitored closely for the remainder of the day and by the morning of discharge continued to remain hemodynamically stable and was satting well on room air. By the morni ng of discharge, his creatinine did come down to 3.37 without any diuretic intervention required. Hi s magnesium was noted to be low at 1.4; however, this was replaced with 2 mEq of IV magnesium. Dr. Genesis avila came and evaluated the patient a few hours later on the morning of discharge and recommended the patient follow up with him on an outpatient basis within 1 week of discharge. Finally, regarding the patient's deconditioning secondary to chemotherapy and malignancy, the patient was able to walk 200 feet with physical therapy the morning of discharge. They recommended that he be discharged home with home health and physical therapy. A consult was therefore placed with reilly chapin in order to help arrange this for the patient upon discharge. Thus, after being cleared by Nephrology and showing a decreasing trend in his serum creatinine, the patient was cleared for disch arge, in stable condition. DISPOSITION: Stable. DISCHARGE INSTRUCTIONS: 1. Location: Home. 2. Diet: Diabetic diet, heart healthy diet, low sodium and renal diet, low protein. 3. Activity: As tolerated. 4. Followup: The patient was instructed to follow up with his primary care provider as well as his rac specialist, Dr. Nelson Chan within 1 week of discharge.
== END 2018-08-23 17:44 | disposition home health service (06) | DRG 682 ==
LOC: ERS 12:28 → ERHOLD 15:59 → 2NO 19:19
PROVIDERS: ADMIT Student in an Organized Health Care Education/Training Program; ATTEND Student in an Organized Health Care Education/Training Program
DX: N17.9 Acute kidney failure, unspecified (principal); I50.33 Acute on chronic diastolic (congestive) heart failure; I13.0 Hypertensive heart and chronic kidney disease with heart failure and stage 1 through stage 4 chronic kidney disease, or unspecified chronic kidney disease; C22.0 Liver cell carcinoma; E87.5 Hyperkalemia; N18.4 Chronic kidney disease, stage 4 (severe); E11.22 Type 2 diabetes mellitus with diabetic chronic kidney disease; I08.3 Combined rheumatic disorders of mitral, aortic and tricuspid valves; E11.649 Type 2 diabetes mellitus with hypoglycemia without coma; E83.42 Hypomagnesemia; R74.0 Nonspecific elevation of levels of transaminase and lactic acid dehydrogenase [LDH]; D63.1 Anemia in chronic kidney disease; E78.5 Hyperlipidemia, unspecified; N40.0 Benign prostatic hyperplasia without lower urinary tract symptoms; I25.10 Atherosclerotic heart disease of native coronary artery without angina pectoris; Z95.5 Presence of coronary angioplasty implant and graft; E03.9 Hypothyroidism, unspecified; Z96.653 Presence of artificial knee joint, bilateral; Z79.4 Long term (current) use of insulin; D63.0 Anemia in neoplastic disease; Z91.81 History of falling
CPT/HCPCS: 36415; 36416; 36430; 71045; 76770; 80053; 81003; 81015; 82248; 82553; 82570; 83615; 83690; 83735; 83880; 84100; 84300; 84436; 84443; 84484; 84550; 85007; 85025; 85027; 85610; 85730; 86850; 86900; 86901; 93005; 93306; 99211; G0463; G8978-GP-CJ; G8979-GP-CJ; G8980-GP-CJ; J1644; P9016

== ENCOUNTER 2018-09-25 13:12 | Inpatient (IN) | payer MEDICARE, OTHER ==
[2018-09-25 14:10] LABS: #Basophils 0.1 thou/uL (0.0-0.2); #Eosinphils 0.3 thou/uL (0.0-0.7); #Lymphocytes 2.2 thou/uL (1.20-3.40); #Neutrophils 4.9 thou/uL (1.40-6.50); %Basophils 0.8 % (0.0-1.0); %Eosinophils 3.4 % (0.0-10.0); %Lymphocytes 25.7 % (21.0-51.0); %Monocytes 11.7 % (0.0-10.0); %Neutrophils 58.4 % (42.0-75.0); Hemoglobin 8.8 g/dL (14.0-18.0); Mean Corpuscular HGB CONC 32.3 g/dL (32.0-36.0); Mean Corpuscular Hemoglobin 29.8 pg (27.0-31.0); Mean Corpuscular Volume 92.1 fL (78.0-98.0); Mean Platelet Volume 8.9 fL (7.4-10.4); Platelet Count 317 thou/uL (130-400); RBC Distribution Width 15.3 % (11.5-14.5); Red Blood Cell (RBC) Count 2.97 mill/uL (4.70-6.10); White Blood Cell (WBC) Count 8.4 thou/uL (4.8-10.8)
[2018-09-25 14:34] LABS: ALT (SGPT) 41 U/L (8-55); AST (SGOT) 135 U/L (5-34); Albumin 3.4 g/dL (3.4-4.8); Alkaline Phosphatase 407 U/L (40-150); Anion Gap 14 mmol/L (10-20); BUN (Urea Nitrogen) 84 mg/dL (8.4-25.7); Bilirubin, Total 0.4 mg/dL (0.2-1.2); Calc. Creatinine Clearance 0 mL/min (70-130); Calcium 9.9 mg/dL (7.8-10.44); Carbon Dioxide 24 mmol/L (23-31); Chloride 104 mmol/L (98-107); Estimated GFR-MDRD 11; Globulin 3.9 g/dL (2.4-3.5); Glucose 78 mg/dL (83-110); Potassium 4.3 mmol/L (3.5-5.1); Protein, Total 7.3 g/dL (5.8-8.1); Sodium 138 mmol/L (136-145)
[2018-09-25 14:38] LABS: CKMB 1.2 ng/mL (0-6.6); Troponin I 0.012 ng/mL (< 0.028)
--- NOTE | 2018-09-25 15:13 | PDOC.FPRHP ---
- History of Present Illness Chief Complaint: N/V History of Present Illness: Mr. Valdez presents to ED from home via EMS for evaluation of N/V, generalized weakness. He did not want to come to hospital, however his flt like she could not manage him at home and though he needed evaluation. Reports vomiting/ dry heeving that began this morning @ 0800. He was given zofran, napped for a few hours. Then continued to have worsening weakness, decreased PO intake and urine output, dizziness, N/V. He additionally endorses L shoulder pain and butt pain. History of liver cancer. Had CT and lab work done at [facility] on 09/12 which per showed primary liver tumor unchanged but additional liver mets as well as fluid on the lungs and abdomen. Patient was previously on IV updivo treatment , however this did not work and now treatment has been stopped. An experimental drug is possible in the future, however notes they have pretty much decided to discontinue cancer treatment. ED Course: 500mL bolus - Allergies/Adverse Reactions Allergies Allergy/AdvReac Type Severity Reaction Status Date / Time iodine Allergy Rash Verified 09/26/18 00:22 kiwi Allergy Swollen Verified 08/22/18 02:21 Lips shellfish derived Allergy Verified 08/22/18 02:21 SHRIMP Allergy Uncoded 04/27/17 14:01 - Home Medications Medication Instructions Recorded Confirmed Type Fish Oil/Borage/Flax/Om3,6,9 1 1 cap PO BID 04/26/17 09/25/18 History [[place] 3-6-9 Complex Softgel] Loratadine [Claritin] 10 mg PO DAILY 07/30/18 08/22/18 History traMADol HCl [Tramadol HCl] 50 mg PO DAILY 07/30/18 08/22/18 History Acetaminophen [Tylenol Regular 650 mg PO Q4H PRN tab 08/23/18 09/25/18 Rx Strength] Amitriptyline HCl 25 mg PO HS #30 tablet 08/23/18 09/25/18 Rx Cholecalciferol (Vitamin D3) 2,000 unit PO DAILY #30 capsule 08/23/18 09/25/18 Rx [Vitamin D3] Cyclobenzaprine [Flexeril] 10 mg PO TID PRN #90 tab 08/23/18 09/25/18 Rx Mirtazapine 15 mg PO HS #30 tablet 08/23/18 09/25/18 Rx Ondansetron [Zofran ODT] 8 mg PO DAILY PRN #30 tab 08/23/18 09/25/18 Rx Verapamil HCl [Verapamil HCl ER] 360 mg PO DAILY #30 cap24h.pel 08/23/18 Rx Carvedilol 3.125 mg PO BID 09/25/18 09/25/18 History Fexofenadine HCl [Perlita Allergy] 180 mg PO HS 09/25/18 09/25/18 History Finasteride 5 mg PO HS 09/25/18 09/25/18 History Furosemide [Lasix] 20 mg PO DAILY 09/25/18 09/25/18 History Levothyroxine Sodium 100 mg PO DAILY 09/25/18 09/25/18 History Omeprazole 20 mg PO DAILY 09/25/18 09/25/18 History - History PMHx:Liver CA unresponsive to chemo now off tx, HTN, CAD, hypothyroid, HLD, anemia 2/2 malignancy, BPH, DM2, CKD4, HFpEF PSHx: B/l knee replacement, back surgery, stents FHx: non-contributory Social: Lives with at home. No tobacco, alcohol, or drug use. - Review of Systems General: reports: weight/appetite/sleep changes (decreased appetite). denies: fever/chills Eyes: denies: eye pain, vision changes ENT: reports: rhinorrhea. denies: nasal congestion Respiratory: reports: cough, congestion. denies: shortness of breath Cardiovascular: denies: chest pain, palpitation, edema Gastrointestinal: reports: nausea, vomiting, constipation. denies: diarrhea, abdominal pain Genitourinary: denies: dysuria, discharge Skin: denies: rashes, lesions, jaundice Musculoskeletal: reports: pain (L shoulder, b/l knees). denies: tenderness Neurological: reports: weakness. denies: syncope - Vital signs BP: 112/57 HR: 58 RR: 11 Tmax: 97.5 Pox: 91% on RA Wt: 71 kg - Physical Exam Constitutional: NAD HEENT: normocephalic and atraumatic -HEENT: MM dry Neck: FROM, trachea midline Heart: RRR, normal S1/S2, other (4/6 systolic murmur heard loudest over aorta) Lungs: CTAB, no respiratory distress, no rales/rhonchi, no wheezing Abdomen: soft, non-tender (denies TTP but guards with palpation), bowel sounds present Musculoskeletal: normal structure, normal tone Neurological: no focal deficit Skin: no rash/lesions, capillary refill <2 seconds, no jaundice Heme/Lymphatic: no unusual bruising or bleeding Psychiatric: normal mood and affect FMR H&P: Results - Labs Result Diagrams: 09/25/18 13:57 09/25/18 13:57 Lab results: WBC 8.4 thou/uL (4.8-10.8) 09/25/18 13:57 Hgb 8.8 g/dL (14.0-18.0) L 09/25/18 13:57 Hct 27.4 % (42.0-52.0) L 09/25/18 13:57 MCV 92.1 fL (78.0-98.0) 09/25/18 13:57 Plt Count 317 thou/uL (130-400) 09/25/18 13:57 Neutrophils % 58.4 % (42.0-75.0) 09/25/18 13:57 Sodium 138 mmol/L (136-145) 09/25/18 13:57 Potassium 4.3 mmol/L (3.5-5.1) 09/25/18 13:57 Chloride 104 mmol/L (98-107) 09/25/18 13:57 Carbon Dioxide 24 mmol/L (23-31) 09/25/18 13:57 BUN 84 mg/dL (8.4-25.7) H 09/25/18 13:57 Creatinine 5.28 mg/dL (0.6-1.3) H 09/25/18 13:57 Glucose 78 mg/dL (83-110) L 09/25/18 13:57 Calcium 9.9 mg/dL (7.8-10.44) 09/25/18 13:57 Total Bilirubin 0.4 mg/dL (0.2-1.2) 09/25/18 13:57 AST 135 U/L (5-34) H 09/25/18 13:57 ALT 41 U/L (8-55) 09/25/18 13:57 Alkaline Phosphatase 407 U/L (40-150) H 09/25/18 13:57 CK-MB (CK-2) 1.2 ng/mL (0-6.6) 09/25/18 13:57 B-Natriuretic Peptide 1440.9 pg/mL (0-100) H 09/25/18 13:57 Serum Total Protein 7.3 g/dL (5.8-8.1) 09/25/18 13:57 Albumin 3.4 g/dL (3.4-4.8) 09/25/18 13:57 FMR H&P: A/P - Problem List (1) SIVA (acute kidney injury) Current Visit: Yes Status: Acute Code(s): N17.9 - ACUTE KIDNEY FAILURE, UNSPECIFIED (2) CKD (chronic kidney disease) stage 4, GFR 15-29 ml/min Current Visit: Yes Status: Acute Code(s): N18.4 - CHRONIC KIDNEY DISEASE, STAGE 4 (SEVERE) (3) (HFpEF) heart failure with preserved ejection fraction Current Visit: Yes Status: Acute Code(s): I50.30 - UNSPECIFIED DIASTOLIC ( CONGESTIVE) HEART FAILURE (4) Physical deconditioning Current Visit: Yes Status: Acute Code(s): R53.81 - OTHER MALAISE (5) Anemia Current Visit: Yes Status: Chronic Code(s): D64.9 - ANEMIA, UNSPECIFIED Qualifiers: Anemia type: other cause (6) Liver neoplasm Current Visit: Yes Status: Chronic (7) BPH (benign prostatic hyperplasia) Current Visit: Yes Status: Chronic Code(s): N40.0 - BENIGN PROSTATIC HYPERPLASIA WITHOUT LOWER URINRY TRACT SYMP (8) Diabetes mellitus Current Visit: Yes Status: Chronic Code(s): E11.9 - TYPE 2 DIABETES MELLITUS WITHOUT COMPLICATIONS Qualifiers: Diabetes mellitus type: type 2 (9) HLD (hyperlipidemia) Current Visit: Yes Status: Chronic Code(s): E78.5 - HYPERLIPIDEMIA, UNSPECIFIED (10) HTN (hypertension) Current Visit: Yes Status: Chronic Code(s): I10 - ESSENTIAL (PRIMARY) HYPERTENSION (11) Hypothyroid Current Visit: No Status: Chronic Code(s): E03.9 - HYPOTHYROIDISM, UNSPECIFIED (12) CAD (coronary artery disease) Current Visit: No Status: Chronic Code(s): I25.10 - ATHSCL HEART DISEASE OF [place] CORONARY ARTERY W/O ANG PCTRS (13) Neuropathy Current Visit: Yes Status: Acute Code(s): G62.9 - POLYNEUROPATHY, UNSPECIFIED - Plan 88 yo M with PMH liver CA, CKD4 presents with N/V/weakness and admitted for acute renal failure. SIVA on CKD4 - consult Dr. Chan, appreciate recommendations - K+ stable - Patient appears volume down with decreased PO intake. IVF LR @ 110 maintenance - Cr 5.28 today. Earlier this month 3.8. - takes veltassa powder to lower potassium 3 hours before or after eating HFpEF - echo 07/2018 showed EF 50-55%, moderate LVH, with severe mitral and tricuspid regurgitation, severe aortic stenosis - has b/l LE edema on exam - CXR pending - will monitor for signs of fluid overload and consider decreasing IVF in am - BNP 1440, at baseline - hold home lasix Nausea/Vomiting - CL diet, advance as tolerated - zofran, phenergan prn Chronic Normocytic Anemia - Hgb 8.8 on admission. Has received transfusions in past year for this. - will monitor with CBC Hepatocellular Carcinoma - CT and labs done @ [facility] 08/18 showed mets within liver, "fluid on lungs and abdomen" - was previoulsy on Updivo, however failed treatment. No other treatment options at this point. - AST 135, ALT 41, Alk phos 407 - continue home mirtazapine for appetite HTN - continue home verapamil, carvedilol - BP stable Deconditioning - pt living at home with without assistance - consult PT/OT - case management for discharge planning - rehab consult Hypothyroid - 08/18 TSH WNL, T4 15.8 - continue home synthroid HLD - takes fish oil at home Neuropathy - on amitriptyline at home GERD - takes omeprazole at home - protonix ordered DM2 - not on any home medications BPH - continue home finasteride Code: FULL. Discussed with patient, present Ppx: heparin, protonix Diet: CL, advance as tolerated Dispo: admit to telemetry inpatient FMR H&P: Upper Level - Pertinent history 77 yo CM with PMH of metastatic HCC, CKD4-5, HFpEF, HTN, DM2 presenting with worsening weakness, decreased PO intake, nausea and vomiting over the last few days. Pt lives at home with his and recently found out that his metastatic disease is beyond established treatments at [facility]. There may be experimental drugs that he could try but he is not currently receiving treatment. He does not do much at home. He has also recently had worsening kidney function. His encouraged presentation to the ER today for worsening NV. Pt has also had vague joint/body pains due to limited physical activity over the last few weeks. - Pertinent findings Gen: well developed in NAD CV: harsh 4/6 systolic murmur loudest at lower LSB, RRR Resp: nonlabored, CTAB Abd: mildly TTP diffusely Ext: 2+ edema lower ext BL - Plan Date/Time: 09/25/18 0213 I, Miguel Galindo MD PGY3, have evaluated this patient and agree with findings/ plan as outlined by ad operations intern resident. Pertinent changes/additions are listed here. 1. ARF on CKD4 -Pt presents with continuing worsening kidney function. Nephrology consulted from ER and recommended admission for further work up and management, recommendations greatly appreciated. -Pt received 500cc bolus in ER due to history of HFpEF, elevated BNP, and lower extremity edema. Possible worsening of cardiorenal syndrome. No evidence of decompensated HF warranting dopamine/dobutamine at this time but will monitor closely. -Avoid nephrotoxic agents and consider gentle IV fluids as tolerated with history of HFpEF. -Strict I/O's. -Monitor on telemetry. 2. HFpEF -TTE done in the last 2 months reveals EF 50-55%. -Elevated BNP near values obtain on previous hospitalizations. Obtain CXR. -Closely monitor fluid balance. 3. Metastatic Hepatocellular Carcinoma -Likely contributing to NV and physical deconditioning. -Symptomatic control with zofran and phenergan PRN. -PT/OT eval and treatment and rehab screening as pt also has physical deconditioning. 4. Chronic normocytic anemia -Near baseline, continue to monitor. 5. Physical deconditioning -PT/OT per above. Rehab screen. Medications will be continued for chronic medical problems. FULL code. PPx: Heparin for VTE, Protonix for GI. disposition: Pt admitted under inpatient status for anticipated length of stay greater than two midnights, pending clinical course. Attending Addendum - Attending Addendum Date/Time: 09/26/18 0033 I personally evaluated the patient and discussed the management with Dr. Hua, who received checkout from the residents. I agree with and repeated the History, Examination, Assessment and Plan documented above with any addition or exceptions noted below. The patient with several days history of nausea and vomiting. At baseline he is quite weak and debilitated, only able to ambulate short distances. He denies cp, sob, fever or chills. On exam he is ill appearing, has a 3/6 NASREEN heard best at LLSB, RRR, bilateral basilar crackles without wheezes or inc wob, no significant edema. BS+, distended, nontender abdomen with umbilical hernia. Labs and imaging reviewed. Patient with SIVA on CKD, possibly 2/2 prerenal causes and dehydration d/t n/v. Nephrology has been consulted and rec'd IVF and albumin, which the patient is getting. Continue antiemetics and home medications. I spent approximately 45 minutes with the family discussing his history and current medical condition. They wish to remain full code and have some hope in an experimental treatment that the says is currently not FDA approved. He has become quite debilitated with pronounced weight loss since his initial diagnosis of cancer. Recheck BMP in AM. Will monitor closely.
[2018-09-25 20:14] LABS: Troponin I 0.022 ng/mL (< 0.028)
[2018-09-25] MEDS ORDERED: Acetaminophen 325 MG TAB PO PRN (23:10)
[2018-09-25] MEDS ORDERED: Promethazine HCl 25 MG/ML VIAL IM/IV PRN (23:10)
[2018-09-25] MEDS ORDERED: Heparin 5,000 UNITS/ML VIAL SC SCH (23:30)
[2018-09-25] MEDS ORDERED: Loratadine 10 MG TAB PO SCH (23:45)
[2018-09-25] MEDS ORDERED: Fish Oil 1,000 MG CAP PO SCH (23:45)
[2018-09-25] MEDS ORDERED: Carvedilol 3.125 MG TAB PO SCH (23:45)
[2018-09-25] MEDS ORDERED: Amitriptyline HCl 25 MG TAB PO SCH (23:45)
[2018-09-25] MEDS ORDERED: Finasteride 5 MG TAB PO SCH (23:45)
[2018-09-25] MEDS: Albumin 25% 25 GM/100 ML BOT IVPB SCH (23:46)
[2018-09-26] MEDS: Lactated Ringer's 1,000 ML IV SCH ×2 (00:28→11:53)
[2018-09-26] MEDS: Cyclobenzaprine 10 MG TAB PO PRN (00:30)
[2018-09-26] MEDS: Ondansetron PF 4 MG/2 ML Vial IVP PRN ×2 (00:31→06:35)
[2018-09-26] MEDS: Albumin 25% 25 GM/100 ML BOT IVPB SCH (01:58)
--- NOTE | 2018-09-26 04:46 | CON ---
DATE OF CONSULTATION: 09/25/2018 CONSULTING PHYSICIAN: . REASON FOR CONSULTATION: Acute kidney injury on chronic kidney disease. REASON FOR ADMISSION: Weakness, nausea, vomiting. HISTORY OF PRESENT ILLNESS: This is a 77-year-old male with history of chronic kidney disease, liver cancer with metastasis, hypothyroidism, hyperlipidemia, anemia, type 2 diabetes, BPH, CHF, came to [facility] with nausea, vomiting. Nephrology is consulted for acute kidney injury. Patient denies any fever or chills. He is having mild shortness of breath also, but when I saw him his oxygen satur ation was 100% on room air. No fever or chills recently. He is on workup with Kelsy Brooks and was found to have liver cancer with metastasis, also is on workup with pleural effusion and ascites. PAST MEDICAL HISTORY: Positive for his chronic kidney disease, CHF, liver cancer with possible mets, coronary artery disease, type 2 diabetes, BPH. PAST SURGICAL HISTORY: Bilateral knee replacement, back surgery, stents placement. HOME MEDICATIONS: Include Tylenol, amitriptyline, carvedilol, vitamin D3, finasteride, levothyroxine , mirtazapine, verapamil, fish oil, loratadine. ALLERGIES: IODINE, KIWI, SHELLFISH . SOCIAL HISTORY: No smoking, alcohol, or illicit drug abuse. FAMILY HISTORY: No history of kidney disease. REVIEW OF SYSTEMS: The following complete review of systems was negative, unless otherwise mentioned in the HPI or below: Constitutional: Weight loss or gain, ability to conduct usual activities. Sk in: Rash, itching. Eyes: Double vision, pain. ENT/Mouth: Nose bleeding, neck stiffness, pain, te nderness. Cardiovascular: Palpitations, dyspnea on exertion, orthopnea. Respiratory: Shortness of breath, wheezing, cough, hemoptysis, fever, or night sweats. Gastrointestinal: Poor appetite, abdo dinh pain, heartburn, nausea, vomiting, constipation, or diarrhea. Genitourinary: Urgency, frequen cy, dysuria, nocturia. Musculoskeletal: Pain, swelling. Neurologic/Psychiatric: Anxiety, depressi on. Allergy/Immunologic: Skin rash, bleeding tendency. PHYSICAL EXAMINATION: GENERAL: An elderly male in no apparent distress. VITAL SIGNS: Temperature 97.5, pulse 58, respiratory 18, blood pressure 112/57. HEENT: Atraumatic, normocephalic. Oral mucosa is moist. NECK: Supple, no masses. HEART: S1, S2 heard. Rate and rhythm regular. RESPIRATORY: Clear. ABDOMEN: Soft, distended. MUSCULOSKELETAL: 1+ edema. DERMATOLOGIC: No skin rash. NEUROLOGICAL: Lethargic. LABORATORY DATA AND X-RAY FINDINGS: Hemoglobin is 8.8, potassium is 4.3, BUN is 84, creatinine is 5. 2. ASSESSMENT AND PLAN: 1. Acute kidney injury on chronic kidney disease, stage 4. Agree with hydration. We will add album in. 2. Edema. 3. Possible hepatorenal syndrome. 4. Elevated BNP. 5. Anemia. 6. Hypertension, stable. 7. Prognosis guarded. We will have albumin and hydration if tolerated and monitor respiratory statu s closely. We will continue to follow. No acute indication for dialysis. Recommend renal diet and avoid nephrotoxins and renally dosed all the medications.
[2018-09-26] MEDS ORDERED: Albumin 25% 25 GM/100 ML BOT IVPB SCH (06:00)
[2018-09-26 06:06] LABS: #Basophils 0.1 thou/uL (0.0-0.2); #Eosinphils 0.2 thou/uL (0.0-0.7); #Lymphocytes 2.1 thou/uL (1.20-3.40); #Monocytes 0.8 thou/uL (0.11-0.59); #Neutrophils 4.6 thou/uL (1.40-6.50); %Basophils 0.8 % (0.0-1.0); %Eosinophils 2.6 % (0.0-10.0); %Lymphocytes 26.7 % (21.0-51.0); %Monocytes 10.6 % (0.0-10.0); %Neutrophils 59.4 % (42.0-75.0); Hemoglobin 8.6 g/dL (14.0-18.0); Mean Corpuscular HGB CONC 31.8 g/dL (32.0-36.0); Mean Corpuscular Hemoglobin 29.5 pg (27.0-31.0); Mean Corpuscular Volume 92.6 fL (78.0-98.0); Mean Platelet Volume 9.4 fL (7.4-10.4); Platelet Count 300 thou/uL (130-400); RBC Distribution Width 15.6 % (11.5-14.5); Red Blood Cell (RBC) Count 2.92 mill/uL (4.70-6.10); White Blood Cell (WBC) Count 7.8 thou/uL (4.8-10.8)
[2018-09-26] MEDS: Levothyroxine Sodium 100 MCG TAB PO SCH (06:16)
[2018-09-26 06:34] LABS: ALT (SGPT) 34 U/L (8-55); AST (SGOT) 109 U/L (5-34); Albumin 3.4 g/dL (3.4-4.8); Alkaline Phosphatase 357 U/L (40-150); Anion Gap 17 mmol/L (10-20); BUN (Urea Nitrogen) 75 mg/dL (8.4-25.7); Bilirubin, Total 0.3 mg/dL (0.2-1.2); Calc. Creatinine Clearance 14 mL/min (70-130); Calcium 9.6 mg/dL (7.8-10.44); Carbon Dioxide 19 mmol/L (23-31); Chloride 105 mmol/L (98-107); Estimated GFR-MDRD 13; Globulin 3.6 g/dL (2.4-3.5); Glucose 60 mg/dL (83-110); Potassium 4.3 mmol/L (3.5-5.1); Sodium 137 mmol/L (136-145)
--- NOTE | 2018-09-26 06:59 | PDOC.FM ---
- Subjective Subjective: Mr. Valdez has not been able to tolerate PO intake overnight. Minimal water intake. Has had nausea, vomiting. BG in 60s and vomited apple juice given by nurse, BG remained in 60s on recheck. Notes worsening abdominal distention. Last BM Tuesday. Pt typically has BMs 1-2x per day and uses stool softeners. No SOB. not in room at time. Discussed with patient his goals of care and thoughts on his treatment. Patient has had conversations with oncology. He likes the more "aggressive" and "positive" approach that MD Brooks has, which is where he has been receiving care. He does wish to try out any experimental therapy as it is available to "make him well". He notes that quality of life is more important to him than quantity of life. He recognizes that he might not live a long time, and he is okay with dying. He says he has had a good life. He knows he is physically down and recognizes he won't get back to how he used to be. He tries to not be a burden to his at home. He desires to be full code. He has been pleased with the treatment he has received. Patient is member of [employer] in [place]. - Objective MAR Reviewed: Yes Vital Signs & Weight: Vital Signs (12 hours) Temp Pulse Resp BP Pulse Ox 09/26/18 03:10 98.5 F 76 14 137/64 91 L 09/25/18 23:35 97.4 F L 69 14 135/60 97 09/25/18 23:00 94 L 09/25/18 22:56 97.8 F 85 20 125/65 94 L Weight Weight 72.711 kg I&O: 09/24/18 09/25/18 09/26/18 06:59 06:59 06:59 Intake Total 1893 Output Total 400 Balance 1493 Result Diagrams: 09/26/18 04:54 09/26/18 04:54 Phys Exam - Physical Examination Constitutional: NAD dry mucus membranes Respiratory: no wheezing, no rales, no rhonchi, clear to auscultation bilateral Cardiovascular: RRR 3/6 systolic mumur heard loudest at L lower sternal border Gastrointestinal: positive bowel sounds distended, tight, mildly TTP, no fluid wave Musculoskeletal: no edema Neurological: non-focal Psychiatric: normal affect Skin: cap refill <2 seconds Dx/Plan (1) SIVA (acute kidney injury) Code(s): N17.9 - ACUTE KIDNEY FAILURE, UNSPECIFIED Status: Acute (2) CKD (chronic kidney disease) stage 4, GFR 15-29 ml/min Code(s): N18.4 - CHRONIC KIDNEY DISEASE, STAGE 4 (SEVERE) Status: Acute (3) (HFpEF) heart failure with preserved ejection fraction Code(s): I50.30 - UNSPECIFIED DIASTOLIC (CONGESTIVE) HEART FAILURE Status: Acute (4) Physical deconditioning Code(s): R53.81 - OTHER MALAISE Status: Acute (5) Anemia Code(s): D64.9 - ANEMIA, UNSPECIFIED Status: Chronic Qualifiers: Anemia type: other cause (6) Liver neoplasm Status: Chronic (7) BPH (benign prostatic hyperplasia) Code(s): N40.0 - BENIGN PROSTATIC HYPERPLASIA WITHOUT LOWER URINRY TRACT SYMP Status: Chronic (8) Diabetes mellitus Code(s): E11.9 - TYPE 2 DIABETES MELLITUS WITHOUT COMPLICATIONS Status: Chronic Qualifiers: Diabetes mellitus type: type 2 (9) HLD (hyperlipidemia) Code(s): E78.5 - HYPERLIPIDEMIA, UNSPECIFIED Status: Chronic (10) HTN (hypertension) Code(s): I10 - ESSENTIAL (PRIMARY) HYPERTENSION Status: Chronic (11) Hypothyroid Code(s): E03.9 - HYPOTHYROIDISM, UNSPECIFIED Status: Chronic (12) CAD (coronary artery disease) Code(s): I25.10 - ATHSCL HEART DISEASE OF [place] CORONARY ARTERY W/O ANG PCTRS Status: Chronic (13) Neuropathy Code(s): G62.9 - POLYNEUROPATHY, UNSPECIFIED Status: Acute - Plan Plan: 88 yo M with PMH liver CA, CKD4 presents with N/V/weakness and admitted for acute renal failure. SIVA on CKD4 - consult Dr. Chan, appreciate recommendations. started albumin. - K+ stable - Continue IVF @ 110 maintenance. Kidney function improving. Was on LR but switched to D51/2NS this am d/t hypoglycemia and inability to tolerate PO intake. - Cr 5.28 -> 4.5 - Earlier this month Cr was 3.8. - avoid nephrotoxic meds and renally dose medications HFpEF - echo 07/2018 showed EF 50-55%, moderate LVH, with severe mitral and tricuspid regurgitation, severe aortic stenosis - has no b/l LE edema on exam - will monitor for signs of fluid overload - BNP 1440, at baseline - hold home lasix Nausea/Vomiting - CL renal diet, advance as tolerated - zofran, phenergan prn - continued N/V with distended abdomen today, abdominal discomfort. Last BM Tuesday. Pt normally has 1-2 BMs per day and takes stool softeners at home. Ordered KUB to evaluate for SBO. Hypoglycemia - BG 60s this am, pt unable to tolerate apple juice, BG still 60s. - changed IVF to D5, q6h accuchecks Chronic Normocytic Anemia - Hgb 8.8 on admission, stable. Has received transfusions in past year for this. - will monitor with CBC Hepatocellular Carcinoma - CT and labs done @ [facility] 08/18 showed mets within liver, "fluid on lungs and abdomen" - was previoulsy on Updivo, however failed treatment. No other treatment options at this point, possible experimental drugs. - Transaminases stable - continue home mirtazapine for appetite - will consult palliative care for family support HTN - continue home verapamil, carvedilol - BP stable Deconditioning - pt living at home with without assistance - consult PT/OT - case management for discharge planning - rehab consult, patient unsure if he is interested in going to rehab as he doesn't know if they would help him - currently getting PT at home a few times/week Hypothyroid - 08/18 TSH WNL, T4 15.8 - continue home synthroid HLD - takes fish oil at home Neuropathy - on amitriptyline at home GERD - takes omeprazole at home - protonix ordered DM2 - not on any home medications BPH - continue home finasteride Code: FULL. Discussed with patient, present Ppx: heparin, protonix Diet: CL renal, advance as tolerated Dispo: Pending clinical improvement
[2018-09-26] MEDS ORDERED: Prevnar 13-Val Conj/PF 0.5 ML SYRINGE IM ONE (09:00)
[2018-09-26] MEDS ORDERED: Dextrose 5% in Water 1,000 ML IV PRN (09:09)
[2018-09-26] MEDS ORDERED: Dextrose 50% Abboject 50 ML SYRINGE SLOW IVP PRN (09:09)
--- NOTE | 2018-09-26 09:44 | RAD ---
PORTABLE CHEST: Date: 09-26-18 Provided Clinical History: Heart failure. FINDINGS: Comparison 08-22-18 Cardiac and mediastinal silhouette are unchanged in appearance. Mild prominence of the pulmonary vasc ulature persists. No focal consolidation, pleural fluid or pneumothorax apparent. IMPRESSION: Mild prominence of the pulmonary vasculature. POS: [facility]
--- NOTE | 2018-09-26 09:54 | PRG ---
Patient Name: CONNOR MCCONNELL Date of service: 09/26/2018 Subjective: Patient was seen and examined at bedside and overnight events noted. Patient denies any shortness of breath or chest pain or palpitation. No history of nausea or vomiting or diarrhea or fever or chills or cramps. Objective: General: This is an elderly male in no apparent distress. Vital signs: Temperature 98.7, pulse 71, respiratory rate 16, blood pressure 124/57. HEENT: Atraumatic, normocephalic. Oral mucosa is moist. Neck: Supple. Cardiovascular: S1 S2 heard. Rate and rhythm regular. Respiratory: Clear to auscultation. Gastrointestinal: Abdomen is soft. Musculoskeletal: No tenderness. No edema. Dermatologic: No skin rash. Neurologic: Alert and awake and oriented X3. No focal neurologic deficits. Moving all the extremit ies. Psychiatric: Mood and affect normal. LABORATORY DATA: Potassium is 4.3, BUN 75, creatinine is 4.5. ASSESSMENT AND PLAN: 1. Acute kidney injury on chronic kidney stage 4 with improvement in creatinine. Agree with hydrati on, cautiously monitor respiratory status. 2. Edema. 3. Hepatorenal syndrome. Continue albumin for 4 doses. 4. Anemia. 5. Hypertension, stable. Prognosis is guarded, but renal function better for now. We will continue to monitor. Avoid nephrot oxins.
[2018-09-26] MEDS: Ondansetron ODT 4 MG TAB PO PRN ×2 (10:37→15:33)
[2018-09-26] MEDS: Carvedilol 3.125 MG TAB PO SCH ×2 (10:38→21:09)
[2018-09-26] MEDS: Dextrose 5 %-0.45 % NaCl 1,000 ML IV SCH ×2 (10:39→20:49)
[2018-09-26] MEDS: Fish Oil 1,000 MG CAP PO SCH ×2 (10:39→21:10)
[2018-09-26] MEDS: Pantoprazole 40 MG VIAL IVP SCH (10:40)
[2018-09-26] MEDS: Heparin 5,000 UNITS/ML VIAL SC SCH ×3 (10:41→21:10)
[2018-09-26] MEDS ORDERED: Polyethylene Glycol 3350 17 GM Packet PO PRN (11:33)
[2018-09-26] MEDS ORDERED: Acetaminophen 325 MG TAB PO PRN (11:36)
[2018-09-26] MEDS ORDERED: Docusate 100 MG CAP PO SCH (11:45)
--- NOTE | 2018-09-26 12:00 | PRG ---
DATE OF SERVICE: 09/26/2018 This is an addendum to the note of Dr. Shayy Perez. Mr. Valdez is a pleasant 77-year-old white male patient with a history of liver cancer presumed hepato cellular carcinoma that is metastatic. He has been followed at [facility]. He presented to our Emergency Room for evaluation of nausea, vomiting, and just generalized weakness. This morni ng he is actually feeling better after fluids. He is awake, alert, in no distress. We will continue with IV fluids and gradually increase his diet. His abdomen was noted to be slightly distended, which is likely a combination of stool and gas, but w e are awaiting reports on an upright abdominal x-ray.
--- NOTE | 2018-09-26 12:29 | RAD ---
ABDOMEN ONE VIEW: HISTORY: Abdominal distention. Evaluate for small bowel obstruction. COMPARISON: None. FINDINGS: Nonspecific bowel gas pattern. Slightly prominent, air-filled stomach. There is no evidence of smal l bowel distention or dilatation. Scattered fecal material and air in a nondistended, nondilated col on. No suspicious densities in the abdomen or pelvis. No pneumoperitoneum on the supine projection. IMPRESSION: Nonspecific bowel gas pattern. POS: [facility]
[2018-09-26] MEDS: traMADol HCl 50 MG TAB PO PRN (18:21)
[2018-09-26] MEDS ORDERED: Loratadine 10 MG TAB PO SCH ×2 (21:00)
[2018-09-26] MEDS ORDERED: Senokot 8.6 MG TAB PO SCH (21:00)
[2018-09-26] MEDS: Docusate 100 MG CAP PO SCH (21:09)
[2018-09-26] MEDS: Amitriptyline HCl 25 MG TAB PO SCH (21:09)
[2018-09-26] MEDS: Finasteride 5 MG TAB PO SCH (21:10)
[2018-09-27 05:16] LABS: #Basophils 0.1 thou/uL (0.0-0.2); #Eosinphils 0.2 thou/uL (0.0-0.7); #Monocytes 0.9 thou/uL (0.11-0.59); %Lymphocytes 27.7 % (21.0-51.0); %Monocytes 12.5 % (0.0-10.0); %Neutrophils 55.8 % (42.0-75.0); Hemoglobin 8.1 g/dL (14.0-18.0); Mean Corpuscular HGB CONC 32.6 g/dL (32.0-36.0); Mean Corpuscular Hemoglobin 30.2 pg (27.0-31.0); Mean Corpuscular Volume 92.8 fL (78.0-98.0); Mean Platelet Volume 8.9 fL (7.4-10.4); Platelet Count 280 thou/uL (130-400); RBC Distribution Width 15.2 % (11.5-14.5); Red Blood Cell (RBC) Count 2.66 mill/uL (4.70-6.10); White Blood Cell (WBC) Count 7.2 thou/uL (4.8-10.8)
[2018-09-27 05:29] LABS: ALT (SGPT) 28 U/L (8-55); AST (SGOT) 90 U/L (5-34); Albumin 3.1 g/dL (3.4-4.8); Alkaline Phosphatase 328 U/L (40-150); Anion Gap 13 mmol/L (10-20); BUN (Urea Nitrogen) 62 mg/dL (8.4-25.7); Bilirubin, Total 0.4 mg/dL (0.2-1.2); Calc. Creatinine Clearance 14 mL/min (70-130); Calcium 8.6 mg/dL (7.8-10.44); Carbon Dioxide 19 mmol/L (23-31); Chloride 105 mmol/L (98-107); Estimated GFR-MDRD 13; Globulin 3.2 g/dL (2.4-3.5); Glucose 94 mg/dL (83-110); Potassium 3.9 mmol/L (3.5-5.1); Protein, Total 6.3 g/dL (5.8-8.1); Sodium 133 mmol/L (136-145)
[2018-09-27] MEDS: Levothyroxine Sodium 100 MCG TAB PO SCH (05:47)
[2018-09-27] MEDS: Dextrose 5 %-0.45 % NaCl 1,000 ML IV SCH ×3 (05:47→23:03)
--- NOTE | 2018-09-27 05:50 | PDOC.FM ---
- Subjective Subjective: Mr. Valdez was resting comfortably in bed this morning. Denies any nausea or vomiting and reports feeling better. Says he had a BM yesterday. No other complaints. Had low BP last night, asymptomatic, improved without intervention. Has not tried to eat any food yet. - Objective MAR Reviewed: Yes Vital Signs & Weight: Vital Signs (12 hours) Temp Pulse Resp BP Pulse Ox 09/27/18 04:00 98.4 F 70 19 104/58 L 96 09/26/18 23:30 98.0 F 53 L 12 97/54 L 92 L 09/26/18 19:35 93 L Weight Admit Weight 72.711 kg Weight 72.711 kg I&O: 09/25/18 09/26/18 09/27/18 06:59 06:59 06:59 Intake Total 1893 Output Total 400 Balance 1493 Result Diagrams: 09/27/18 05:00 09/27/18 05:00 Phys Exam - Physical Examination Constitutional: NAD Respiratory: no wheezing, no rales, no rhonchi, clear to auscultation bilateral Cardiovascular: RRR 3/6 systolic murmur heard best @ LLSB Gastrointestinal: soft (distention improved compared to yesterday), non-tender, positive bowel sounds Musculoskeletal: no edema Neurological: non-focal, moves all 4 limbs Psychiatric: normal affect Skin: normal turgor, cap refill <2 seconds Dx/Plan (1) SIVA (acute kidney injury) Code(s): N17.9 - ACUTE KIDNEY FAILURE, UNSPECIFIED Status: Acute (2) CKD (chronic kidney disease) stage 4, GFR 15-29 ml/min Code(s): N18.4 - CHRONIC KIDNEY DISEASE, STAGE 4 (SEVERE) Status: Acute (3) (HFpEF) heart failure with preserved ejection fraction Code(s): I50.30 - UNSPECIFIED DIASTOLIC (CONGESTIVE) HEART FAILURE Status: Acute (4) Physical deconditioning Code(s): R53.81 - OTHER MALAISE Status: Acute (5) Anemia Code(s): D64.9 - ANEMIA, UNSPECIFIED Status: Chronic Qualifiers: Anemia type: other cause (6) Liver neoplasm Status: Chronic (7) BPH (benign prostatic hyperplasia) Code(s): N40.0 - BENIGN PROSTATIC HYPERPLASIA WITHOUT LOWER URINRY TRACT SYMP Status: Chronic (8) Diabetes mellitus Code(s): E11.9 - TYPE 2 DIABETES MELLITUS WITHOUT COMPLICATIONS Status: Chronic Qualifiers: Diabetes mellitus type: type 2 (9) HLD (hyperlipidemia) Code(s): E78.5 - HYPERLIPIDEMIA, UNSPECIFIED Status: Chronic (10) HTN (hypertension) Code(s): I10 - ESSENTIAL (PRIMARY) HYPERTENSION Status: Chronic (11) Hypothyroid Code(s): E03.9 - HYPOTHYROIDISM, UNSPECIFIED Status: Chronic (12) CAD (coronary artery disease) Code(s): I25.10 - ATHSCL HEART DISEASE OF [place] CORONARY ARTERY W/O ANG PCTRS Status: Chronic (13) Neuropathy Code(s): G62.9 - POLYNEUROPATHY, UNSPECIFIED Status: Acute - Plan Plan: 88 yo M with PMH liver CA, CKD4 presents with N/V/weakness and admitted for acute renal failure. SIVA on CKD4 - consult Dr. Chan, appreciate recommendations. Received 4 doses albumin. - Continue D5 1/2 NS IVF @ 110 maintenance. Kidney function improving. No signs of volume overload at this time. - Cr 5.28 -> 4.5-> 4.3 - Earlier this month Cr was 3.8. - avoid nephrotoxic meds and renally dose medications HFpEF - echo 07/2018 showed EF 50-55%, moderate LVH, with severe mitral and tricuspid regurgitation, severe aortic stenosis - has no b/l LE edema on exam - will monitor for signs of fluid overload - BNP 1440, at baseline - hold home lasix Nausea/Vomiting, resolved - CL renal diet, advance as tolerated - zofran, phenergan prn Constipation, improving - KUB showed no SBO, likely constipation only. Started stool softeners. - Pt has had BM yesterday Hypoglycemia - BG now 90-100s since switching to D5 IVF - q6h accuchecks Chronic Normocytic Anemia - Hgb 8.8 on admission, still stable. Has received transfusions in past year for this. - will monitor with CBC Hepatocellular Carcinoma - CT and labs done @ [facility] 08/18 showed mets within liver, "fluid on lungs and abdomen" - was previoulsy on Updivo, however failed treatment. No other treatment options at this point, possible experimental drugs. - Transaminases stable - continue home mirtazapine for appetite - Consulted palliative care for family support/continuity HTN - continue home verapamil, carvedilol - BP stable. Did have one read of hypotension last night 90s SBP but has now resolved without intervention Deconditioning - pt living at home with without assistance - consult PT/OT - case management for discharge planning - rehab consults, however patient now voices he prefers to go home Hypothyroid - 08/18 TSH WNL, T4 15.8 - continue home synthroid HLD - takes fish oil at home Neuropathy - on amitriptyline at home GERD - takes omeprazole at home - protonix ordered DM2 - not on any home medications BPH - continue home finasteride Code: FULL. Discussed with patient, present Ppx: heparin, protonix Diet: CL renal, advance as tolerated Dispo: Pending clinical improvement
[2018-09-27] MEDS ORDERED: Phenazopyridine HCl 97.5 MG TABLET PO PRN (08:53)
[2018-09-27] MEDS: Carvedilol 3.125 MG TAB PO SCH ×2 (08:56→20:38)
[2018-09-27] MEDS: Docusate 100 MG CAP PO SCH ×2 (08:56→20:38)
[2018-09-27] MEDS: Heparin 5,000 UNITS/ML VIAL SC SCH ×3 (08:57→20:39)
[2018-09-27] MEDS: Fish Oil 1,000 MG CAP PO SCH ×2 (08:57→20:39)
[2018-09-27] MEDS: Pantoprazole 40 MG VIAL IVP SCH (08:57)
[2018-09-27] MEDS: Amitriptyline HCl 25 MG TAB PO SCH (20:38)
[2018-09-27] MEDS: Finasteride 5 MG TAB PO SCH (20:38)
[2018-09-28] MEDS: Cyclobenzaprine 10 MG TAB PO PRN (00:45)
[2018-09-28] MEDS: Levothyroxine Sodium 100 MCG TAB PO SCH (05:22)
[2018-09-28 05:39] LABS: #Eosinphils 0.2 thou/uL (0.0-0.7); #Neutrophils 4.2 thou/uL (1.40-6.50); %Basophils 0.6 % (0.0-1.0); %Eosinophils 2.8 % (0.0-10.0); %Lymphocytes 27.1 % (21.0-51.0); %Monocytes 12.9 % (0.0-10.0); %Neutrophils 56.6 % (42.0-75.0); Hemoglobin 8.8 g/dL (14.0-18.0); Mean Corpuscular HGB CONC 32.8 g/dL (32.0-36.0); Mean Corpuscular Hemoglobin 30.7 pg (27.0-31.0); Mean Corpuscular Volume 93.6 fL (78.0-98.0); Platelet Count 284 thou/uL (130-400); RBC Distribution Width 15.4 % (11.5-14.5); Red Blood Cell (RBC) Count 2.87 mill/uL (4.70-6.10); White Blood Cell (WBC) Count 7.5 thou/uL (4.8-10.8)
[2018-09-28 05:52] LABS: ALT (SGPT) 23 U/L (8-55); AST (SGOT) 74 U/L (5-34); Alkaline Phosphatase 338 U/L (40-150); Anion Gap 14 mmol/L (10-20); BUN (Urea Nitrogen) 58 mg/dL (8.4-25.7); Bilirubin, Total 0.4 mg/dL (0.2-1.2); Calc. Creatinine Clearance 16 mL/min (70-130); Calcium 8.6 mg/dL (7.8-10.44); Carbon Dioxide 19 mmol/L (23-31); Chloride 105 mmol/L (98-107); Estimated GFR-MDRD 14; Globulin 3.2 g/dL (2.4-3.5); Glucose 85 mg/dL (83-110); Potassium 3.8 mmol/L (3.5-5.1); Protein, Total 6.2 g/dL (5.8-8.1); Sodium 134 mmol/L (136-145)
--- NOTE | 2018-09-28 05:53 | PDOC.FM ---
- Subjective Subjective: Mr. Valdez says he has "cabin fever" and is ready to get out of hospital. Tolerating liquid intake well but has decreased appetite, and thinks the food is not good because it doesnt have much salt. He did vomit this morning. Denies abdominal pain, SOB, difficulty breathing. He and his discussed discharge placement options yesterday but have not made a decision. From our conversation, it seemed that the patient prefers to go home. feels she cannot take care of him at home. She wants him to go to rehab. SNF not an option due to funding. - Objective Vital Signs & Weight: Vital Signs (12 hours) Temp Pulse Resp BP Pulse Ox 09/28/18 04:00 97.7 F 73 18 136/69 94 L 09/27/18 19:00 98.9 F 73 18 124/60 92 L Weight Admit Weight 72.711 kg Weight 79.742 kg I&O: 09/26/18 09/27/18 09/28/18 06:59 06:59 06:59 Intake Total 1893 1185 1370 Output Total 400 175 670 Balance 1493 1010 700 Result Diagrams: 09/28/18 05:11 09/28/18 05:11 Phys Exam - Physical Examination Constitutional: NAD HEENT: moist MMs expiratory wheeze, crackles lower lobes Cardiovascular: RRR 3/6 systolic mumur heard best at LLSB Gastrointestinal: soft, non-tender, positive bowel sounds abdomen tight, but unchanged Musculoskeletal: no edema Neurological: non-focal, moves all 4 limbs Psychiatric: normal affect Skin: normal turgor, cap refill <2 seconds Dx/Plan (1) SIVA (acute kidney injury) Code(s): N17.9 - ACUTE KIDNEY FAILURE, UNSPECIFIED Status: Acute (2) CKD (chronic kidney disease) stage 4, GFR 15-29 ml/min Code(s): N18.4 - CHRONIC KIDNEY DISEASE, STAGE 4 (SEVERE) Status: Acute (3) (HFpEF) heart failure with preserved ejection fraction Code(s): I50.30 - UNSPECIFIED DIASTOLIC (CONGESTIVE) HEART FAILURE Status: Acute (4) Physical deconditioning Code(s): R53.81 - OTHER MALAISE Status: Acute (5) Anemia Code(s): D64.9 - ANEMIA, UNSPECIFIED Status: Chronic Qualifiers: Anemia type: other cause (6) Liver neoplasm Status: Chronic (7) BPH (benign prostatic hyperplasia) Code(s): N40.0 - BENIGN PROSTATIC HYPERPLASIA WITHOUT LOWER URINRY TRACT SYMP Status: Chronic (8) Diabetes mellitus Code(s): E11.9 - TYPE 2 DIABETES MELLITUS WITHOUT COMPLICATIONS Status: Chronic Qualifiers: Diabetes mellitus type: type 2 (9) HLD (hyperlipidemia) Code(s): E78.5 - HYPERLIPIDEMIA, UNSPECIFIED Status: Chronic (10) HTN (hypertension) Code(s): I10 - ESSENTIAL (PRIMARY) HYPERTENSION Status: Chronic (11) Hypothyroid Code(s): E03.9 - HYPOTHYROIDISM, UNSPECIFIED Status: Chronic (12) CAD (coronary artery disease) Code(s): I25.10 - ATHSCL HEART DISEASE OF [place] CORONARY ARTERY W/O ANG PCTRS Status: Chronic (13) Neuropathy Code(s): G62.9 - POLYNEUROPATHY, UNSPECIFIED Status: Acute - Plan Plan: 88 yo M with PMH liver CA, CKD4 presents with N/V/weakness and admitted for acute renal failure. SIVA on CKD4 - consult Dr. Chan, appreciate recommendations. s/p 4 doses albumin. - Concern for developing volume overload with new lung crackles this am. Will d/ c IVF and give 1 time dose 20 IV lasix. - Cr 5.28 -> 4.5-> 4.3->4.1 - Earlier this month Cr was 3.8. - avoid nephrotoxic meds and renally dose medications HFpEF - echo 07/2018 showed EF 50-55%, moderate LVH, with severe mitral and tricuspid regurgitation, severe aortic stenosis - has no b/l LE edema on exam, but now lung crackles - BNP 1440, at baseline - hold home lasix Nausea/Vomiting - advancing diet, tolerating some peas and meatloaf. Had one episode vomiting this am. - zofran, phenergan prn Constipation, improving - KUB showed no SBO, likely constipation only. Continue stool softeners. - Pt has had BM Hypoglycemia, improved - BG now 90-100s since switching to D5 IVF - q6h accuchecks Chronic Normocytic Anemia - Hgb 8.8 on admission, still stable. Has received transfusions in past year for this. - will monitor with CBC Hepatocellular Carcinoma - CT and labs done @ [facility] 08/18 showed mets within liver, "fluid on lungs and abdomen" - was previoulsy on Updivo, however failed treatment. No other treatment options at this point, possible experimental drugs. - Transaminases stable - continue home mirtazapine for appetite - Consulted palliative care for family support/continuity HTN - continue home verapamil, carvedilol - BP stable. Deconditioning - pt living at home with without assistance - consult PT/OT - case management for discharge planning - rehab consults, however patient now voices he prefers to go home Hypothyroid - 08/18 TSH WNL, T4 15.8 - continue home synthroid HLD - takes fish oil at home Neuropathy - on amitriptyline at home GERD - takes omeprazole at home - protonix ordered DM2 - not on any home medications BPH - continue home finasteride Code: FULL. Discussed with patient, present Ppx: heparin, protonix Diet: CL renal, advance as tolerated Dispo: Patient clinically improved, could possibly d/c today pending nephro recs. Will need to discuss with pt and along with case management and palliative care the decision for discharge planning. Seems patient desires to go home. does not think she can care for him at home and prefers inpatient rehab. José Miguel noted that SNF is not an option d/t funding.
--- NOTE | 2018-09-28 08:55 | PRG ---
DATE OF SERVICE: 09/27/2018 ADDENDUM: This is an addendum to the note of Dr. Shayy Perez. Mr. Valdez is again resting quietly in bed, in no distress. His chemistries, at this point, reveal a sodium of 133; potassium 3.9; chloride 105; bicarb 19; BUN is 62; and his creatinine has dropped to 4.32, which is nearing his baseline. We will consult continually with Nephrology regarding discharge planning. From a clinical standpoint, he has much improved. Job ID: [id number]
[2018-09-28] MEDS ORDERED: Furosemide 20 MG/2 ML VIAL SLOW IVP SCH (09:30)
[2018-09-28] MEDS: Carvedilol 3.125 MG TAB PO SCH (09:57)
[2018-09-28] MEDS: Fish Oil 1,000 MG CAP PO SCH (09:57)
[2018-09-28] MEDS: Heparin 5,000 UNITS/ML VIAL SC SCH ×2 (09:58→15:43)
[2018-09-28] MEDS: Pantoprazole 40 MG VIAL IVP SCH (09:58)
[2018-09-28] MEDS: Docusate 100 MG CAP PO SCH (09:58)
--- NOTE | 2018-09-28 11:37 | PRG ---
DATE OF SERVICE: 09/28/2018 SUBJECTIVE: Patient was seen and examined at bedside and overnight events noted. Patient denies any shortness of breath or chest pain or palpitation. No history of nausea or vomiting or diarrhea or fever or chills or cramps. OBJECTIVE: GENERAL: This is an elderly male, in no apparent distress. VITAL SIGNS: Temperature 97.8, pulse 79, respiratory rate , blood pressure 134/63. HEENT: Atraumatic, normocephalic. Oral mucosa is moist NECK: Supple. CARDIOVASCULAR: S1, S2 heard. Rate and rhythm regular. RESPIRATORY: Clear to auscultation. GASTROINTESTINAL: Abdomen is soft. MUSCULOSKELETAL: No tenderness. No edema. DERMATOLOGIC: No skin rash. NEUROLOGIC: Alert and awake and oriented X3. No focal neurologic deficits. Moving all the extremities. PSYCHIATRIC: Mood and affect normal. LABORATORY DATA: Potassium 3.8, BUN 58, creatinine 4.1. ASSESSMENT AND PLAN: 1. Acute kidney injury on chronic kidney disease stage 4. stable. No acute indication for dialysis. No edema. 2. Hepatorenal syndrome. 3. Anemia. 4. Hypertension. 5. Overall renal function is stable. No acute indication for dialysis. Avoid nephrotoxins. Job ID: [id number]
--- NOTE | 2018-09-28 14:12 | PQF ---
CLINICAL DOCUMENTATION IMPROVEMENT CLARIFICATION FORM: ICD-10 Updated PLEASE DO AN ADDENDUM TO THE PROGRESS NOTE WITH ANY DOCUMENTATION UPDATES OR ADDITIONS AND CARRY THROUGH TO DC SUMMARY. THANK YOU. DATE: 09/28/18 ATTN: Dr. Shayy Perez / Attending Dr. Martinez Please exercise your independent, professional judgment in responding to the clarification form. Clinical indicators are provided on the bottom of this form for your review Please check appropriate box(s): ___x____ I (concur) with the Nursing Assessment findings as stated below. [ x ] Pressure Ulcer: (Stage I: Erythema; Stage II: Partial thickness; Stage III : Full thickness; Stage IV: Necrosis to muscle/bone) [ x] Location: sacrum Stage (I to IV): _1__ (Left____Right___Bilateral_x__ N/A___) [ ] Location: Stage (I to IV): ____(Left__ Right___Bilateral___N/A___) [ ] No pressure ulcer diagnosis [ ] Other diagnosis [ ] Unable to determine In addition, please specify: Present on Admission (POA): [ x ] Yes [ ] No [ ] Unable to determine For continuity of documentation, please document condition throughout progress notes and discharge summary. Thank You. CLINICAL INDICATORS - SIGNS / SYMPTOMS / LABS Nursing Assessment 09/25 @ 2300: Sacrum Pressure Ulcer Stage I RISKS: H&P: PMH of liver CA, CKD 4. HFpEF, HTN, DM 2 Deconditioning TREATMENT: Skin interventions per Nursing protocol: Position changes: q2h in bed, q1 h in chair Skin kept from excessive moisture. Pre-ulcer skin changes limited to persistent focal edema (Stage 1) Abrasion, blister, partial thickness skin loss involving epidermis and/or dermis (Stage 2) Full thickness skin loss involving damage or necrosis of SQ tissue. (Stage 3) Necrosis of soft tissue through to underlying muscle, tendon, or bone. (Stage 4) Purple or maroon discolored skin or blood filled blister Thank you, Edna (This form is maintained as a part of the permanent medical record) 2015 [employer] All Rights Reserved Edna Lyles RN, BSN [email or web address] Office: [phone] [facility]
[2018-09-28 14:53] VITALS: BMI 28.3
[2018-09-28] MEDS: traMADol HCl 50 MG TAB PO PRN (15:32)
[2018-09-28 15:51] VITALS: TEMP 98.2
[2018-09-28 16:45] VITALS: BP 108/52
--- NOTE | 2018-09-28 18:32 | PDOC.EVN ---
Event Note - Event Note Event Note: 1800-18:30 - in room with case management present Called to room at request of who was concerned about discharge today. She was concerned that the transfer would be too disruptive for him. She believed he should stay because of his shoulder pain and because he is "talking out of his mind". Patient has chronic shoulder pain that was present on admission and has been unchanged throughout his hospitalization. He additionally has had periodic times of disorientation throughout he hospitalization, likely due to delirium associated with being in an unfamiliar environment. Nurse notes this as well. Spoke with nurse. His blood pressure is stable and his vital signs are comparable to what they have been throughout hospitalization. Patient was sleeping in bed. When I awoke him he was alert, responded appropriately to questions. He endorsed shoulder pain and denied any other pain. He denied SOB or difficulty breathing. There is no acute change in mental status. Patient has been seen by nephrology and is stable for discharge from that standpoint. At this time we are not providing any medical care that could not be provided at a lower level of care. I explained this to the and explained that there was no medical reason to prolong his hospitalization which is why we have been planning for discharge the entire day.
--- NOTE | 2018-09-28 22:48 | PRG ---
DATE OF SERVICE: 09/27/2018 SUBJECTIVE: Patient was seen and examined at bedside and overnight events noted. Patient denies any shortness of breath or chest pain or palpitation. No history of nausea or vomiting or diarrhea or fever or chills or cramps. OBJECTIVE: GENERAL: This is an elderly male, in no apparent distress. VITAL SIGNS: Temperature , heart rate 67, respiratory rate , blood pressure 103/57. HEENT: Atraumatic, normocephalic. Oral mucosa is moist NECK: Supple. CARDIOVASCULAR: S1, S2 heard. Rate and rhythm regular. RESPIRATORY: Clear to auscultation. GASTROINTESTINAL: Abdomen is soft. MUSCULOSKELETAL: No tenderness. No edema. DERMATOLOGIC: No skin rash. NEUROLOGIC: Alert and awake and oriented X3. No focal neurologic deficits. Moving all the extremities. PSYCHIATRIC: Mood and affect normal. LABORATORY DATA: Potassium is 3.9, BUN is 62, creatinine is 4.3. ASSESSMENT AND PLAN: 1. Acute kidney injury on chronic kidney disease . 2. Anemia. 3. Hypertension, monitor. We will monitor renal function closely. Job ID: [id number]
--- NOTE | 2018-09-28 23:02 | HP ---
ADDENDUM: To the note of Dr. Shayy Perez. Mr. Valdez continues to look and feel better. His creatinine is now 4.0. He has likely obtained maximum benefit from hospitalization and we will discuss with the nephrology the possibility of discharging him later today. Job ID: [id number]
--- NOTE | 2018-09-29 12:55 | DIS ---
DATE OF ADMISSION: 09/25/2018 DATE OF DISCHARGE: 09/28/2018 RESIDENT: Shayy Perez DO ADMITTING ATTENDING: Guille Brown M.D. DISCHARGE ATTENDING: Tono Martinez M.D. CONSULTS: Nephrology, Dr. Rock. PROCEDURES: On 09/25/2018, chest x-ray showed mild prominence of the pulmonary vasculature. On 09/26/2018, abdominal x-ray and KUB showed nonspecific bowel gas pattern, scattered fecal material, and air in the nondistended, nondilated colon. PRIMARY DIAGNOSES: 1. Acute kidney injury on chronic kidney disease 4. 2. Heart failure with preserved ejection fraction. 3. Nausea and vomiting. 4. Constipation. 5. Hypoglycemia. SECONDARY DIAGNOSES: 1. Chronic normocytic anemia. 2. Hepatocellular carcinoma. 3. Hypertension. 4. Deconditioning. 5. Hypothyroidism. 6. Hyperlipidemia. 7. Neuropathy. 8. Gastroesophageal reflux disease. 9. Diabetes type 2. 10. Benign prostatic hyperplasia. DISCHARGE MEDICATIONS: 1. Fish oil 1 cap p.o. b.i.d. 2. Acetaminophen 650 mg p.o. q.4 hours p.r.n. 3. Amitriptyline 25 mg p.o. at bedtime, #30. 4. Vitamin D3, 2000 units p.o. daily. 5. Mirtazapine 15 mg p.o. at bedtime, #30. 6. Zofran 8 mg PO Daily prn #30. 7. Lasix 20 mg p.o. daily. 8. Omeprazole 20 mg p.o. daily. 9. Perlita Allergy 180 mg p.o. at bedtime. 10. Carvedilol 3.125 mg p.o. b.i.d. 11. Finasteride 5 mg p.o. at bedtime. 12. Synthroid 100 mcg p.o. daily. 13. Flexeril 10 mg p.o. at bedtime. 14. Colace 100 mg p.o. b.i.d. 15. Zofran 4mg PO q6h prn 16. MiraLAX 17 g p.o. daily p.r.n. 17. Tramadol 50 mg p.o. q.6 hours p.r.n. DISCONTINUED MEDICATIONS: Verapamil 360 mg p.o. daily, #30. HISTORY OF PRESENT ILLNESS: A 77-year-old male presented from home via EMS for evaluation of nausea, vomiting, and generalized weakness. The patient did not want to go to hospital; however, felt that he could no longer care for him at home and needed further evaluation. The patient presented with worsening weakness, dizziness, nausea, vomiting, and left shoulder pain. The patient was found to have a creatinine of 5.28 with a history of CKD 4 and a creatinine earlier that month of 3.8. The patient was started on IV fluids, Nephrology was consulted, and the patient was admitted for management of ARF on CKD stage 4. The patient was noted to have hypoglycemia in the 80s initially, likely due to lack of oral intake. D5 was infused as IV fluids. The patient did not show any signs of volume overload and care was taken throughout his hospitalization to monitor for those signs. The patient never reported any shortness of breath or dyspnea on exertion. IV fluids were lowered. One dose of IV Lasix was given due to mild crackles heard on physical exam despite the patient being asymptomatic. The patient continued to have nausea and vomiting; however, at the time of discharge , he was able to tolerate liquids well. He had tried to eat meatloaf and peas, but said that he did not like the taste due to lack of salt. Palliative Care was consulted for continuity and goals of care. Case Management was helping with discharge planning. There was disagreement between and as far as placement. This was discussed with them at length including their options multiple times by various employees. It seemed that preferred the patient to go to rehab and the patient wanted only to go home. They were not interested in hospice. However, is unable to provide the full care the patient requires considering his progressive weakness. Throughout his hospitalization, home medications were all continued. His home verapamil was held throughout hospitalization due to lower blood pressures; however, they were stable. Systolic typically in the 90s, and the patient asymptomatic. The patient's renal function continued to improve throughout his hospitalization with discharge creatinine of 4.1. The patient was deemed stable for discharge by Nephrology and plans were made for discharge to [facility] in which the patient and both agreed to. At the time of discharge , showed some concern over being discharged at 6 p.m. in the evening and considering the uncomfortable ride in the ambulance for the patient. I discussed at length with the that the patient was medically stable and the patient was stable for discharge. DISPOSITION: Stable. DISCHARGE INSTRUCTIONS: LOCATION: [facility]. DIET: Renal. ACTIVITY: As tolerated, will need assistance. FOLLOWUP: With PCP in 1 week. Job ID: [id number] MTDD
--- NOTE | 2018-09-30 18:24 | EKG ---
Test Reason : Blood Pressure : / mmHG Vent. Rate : 057 BPM Atrial Rate : 057 BPM P-R Int : 260 ms QRS Dur : 122 ms QT Int : 478 ms P-R-T Axes : 046 006 030 degrees QTc Int : 465 ms Sinus bradycardia with 1st degree A-V block Non-specific intra-ventricular conduction delay Borderline ECG Confirmed by AYDEE TROY ([id number]), metropolitan editor KOBY DOYLE ([id number]) on 09/30/2018 6:23:21 PM Referred By: Confirmed By:AYDEE TROY
== END 2018-09-28 20:41 | DRG 682 ==
LOC: ERS 13:12 → ERHOLD 15:06 → 2NO 22:33
PROVIDERS: ADMIT Family Medicine; ATTEND Family Medicine
DX: N17.9 Acute kidney failure, unspecified (principal); I50.33 Acute on chronic diastolic (congestive) heart failure; K76.7 Hepatorenal syndrome; I13.0 Hypertensive heart and chronic kidney disease with heart failure and stage 1 through stage 4 chronic kidney disease, or unspecified chronic kidney disease; E11.22 Type 2 diabetes mellitus with diabetic chronic kidney disease; N18.4 Chronic kidney disease, stage 4 (severe); E11.649 Type 2 diabetes mellitus with hypoglycemia without coma; E11.40 Type 2 diabetes mellitus with diabetic neuropathy, unspecified; E78.00 Pure hypercholesterolemia, unspecified; D63.1 Anemia in chronic kidney disease; E03.9 Hypothyroidism, unspecified; I25.10 Atherosclerotic heart disease of native coronary artery without angina pectoris; N40.0 Benign prostatic hyperplasia without lower urinary tract symptoms
CPT/HCPCS: 36415; 36416; 71045; 74018; 80053; 82553; 83880; 84484; 85025; 90471; 90670; 93005; 93798; 94760; 96361; 96374; C9113; G0009; G8978-GP-CM; G8979-GP-CK; G8987-GO-CM; G8988-GO-CJ; J1644; J1940; J2405; P9047; Q0162